=== PATIENT | female | born 1940 | race Caucasian/White ===

== ENCOUNTER 2019-01-26 10:12 | Inpatient (IN) ==
--- NOTE | 2019-01-11 10:16 | PAT Medication Instructions ---
Medication Instructions Date of Service January 11, 2019 Home Medications ascorbic acid (vitamin C) [Vitamin 1,000 mg PO QAM aspirin [Aspirin Low Dose] 81 mg PO HS calcium carbonate-vitamin D3 1 tab PO BID [id number]-ynhnoaq-[id number] 1 drp OPHTHALMIC (EYE) QID cholecalciferol (vitamin D3) 5,000 unit PO QAM coenzyme Q10 [CoQ-10] 100 mg PO QAM cranberry conc-ascorbic acid 1 cap PO QAM taebz-tq7-nmm-cnf-cl0-fzs-astx 1 cap PO QAM magnesium oxide 500 mg PO HS metoprolol succinate 25 mg PO QAM nitroglycerin [Nitrostat] 1 dose SUBLINGUAL UD PRN oregano oil 1 cap PO QAM vit A palm,D3 in cod liver oil 1 cap PO HS vitamins A,C,A-lchl-kxxiyb [ICaps 1 tab PO QAM wheat dextrin [Benefiber Sugar 2 tsp PO QAM white petrolatum-mineral oil 1 applic OPHTHALMIC (EYE) HS Continue as directed nitroglycerin [Nitrostat] 1 dose SUBLINGUAL UD PRN (if needed) STOP taking 2 weeks before surgery (or as soon as possible if surgery is within 2 weeks) coenzyme Q10 [CoQ-10] 100 mg PO QAM cranberry conc-ascorbic acid 1 cap PO QAM pksqt-ty1-oas-lge-jg8-uhv-astx 1 cap PO QAM oregano oil 1 cap PO QAM vit A palm,D3 in cod liver oil 1 cap PO HS vitamins A,C,D-clig-zspeaw [ICaps 1 tab PO QAM DO NOT take the morning of surgery ascorbic acid (vitamin C) [Vitamin 1,000 mg PO QAM calcium carbonate-vitamin D3 1 tab PO BID cholecalciferol (vitamin D3) 5,000 unit PO QAM wheat dextrin [Benefiber Sugar 2 tsp PO QAM Take morning of surgery With a small sip of water, OTHERWISE NOTHING TO EAT OR DRINK AFTER MIDNIGHT: featfevetwyamyx-qojgvmm-[id number] 1 drp OPHTHALMIC (EYE) QID metoprolol succinate 25 mg PO QAM Take evening before surgery aspirin [Aspirin Low Dose] 81 mg PO HS calcium carbonate-vitamin D3 1 tab PO BID ooeuwgidlmcrizy-kcucbha-mbtd73 1 drp OPHTHALMIC (EYE) QID magnesium oxide 500 mg PO HS white petrolatum-mineral oil 1 applic OPHTHALMIC (EYE) HS Other Notes If you have any questions please call us at [phone] or [phone] or [phone] or [phone]
--- NOTE | 2019-01-11 10:45 | Anesthesiology Consultation ---
Date of Service January 11, 2019 Assessment & Plan (1) Encounter for pre-operative examination: PCP Clearance 01/18/19: "Pt is medically cleared for procedure. Stress test negative. Cardiac clearance from cardiology." Cardiology clearance 12/27/18: " Wendi has been well. She remains very active and is not limited by any symptoms. 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 Stress testing shows no infarct with small area of apical ischemia. She has used a few SL nitro over the last few months. We discussed increasing metoprolol succinate versus starting isosorbide mononitrate. Her heart rate and BP are both stable. EKG is unchanged. Recommend continued aspirin through the perioperative period. Patient is stable and at optimal cardiac status presently to proceed with the planned surgery." Case d/w Dr. Adhikari due to cardiac clearance in spite of recent + stress test. 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 She has not reported exertional complaints, only chest pain at rest and with anxiety. Occluded diagonal branch is not amenable to PCI." Chart Review Chart Review: Acceptable Risk for Surgery and Patient seen in Pre Admission Testing Teaching & Discussion Instructed NPO after midnight before surgery, except medications with 15 cc of water. Medication instructions provided according to the PAT guidelines. History Surgery Operation Date: 01/26/19 10:30 Proposed Procedures p Left Total Knee Arthroplasty - Joaquin Oakes DO Height/Weight Height: 5 ft 1.75 in Weight: 91.9 kg Allergies Allergy/AdvReac Type Severity Reaction Status Date / Time Penicillins Allergy Severe SHORTNESS Verified 01/05/19 13:59 OF BREATH AND WHOLE BODY SWELLING pineapple Allergy Severe Anaphylaxis Verified 01/11/19 11:18 nickel Allergy Intermediate Blister Verified 01/05/19 14:32 Cephalosporins AdvReac Mild KEFLEX = Verified 01/05/19 13:59 N&V Iodinated Contrast- Oral and AdvReac Mild NAUSEA/VOMI Verified 01/05/19 13:59 IV Dye TTING Medications Home Medications Medication Instructions Recorded Confirmed Last Taken ascorbic acid (vitamin C) [Vitamin 1,000 mg PO QAM 01/05/19 01/05/19 Unknown C With Isela Hips] aspirin [Aspirin Low Dose] 81 mg PO HS 01/05/19 01/05/19 Unknown calcium carbonate-vitamin D3 1 tab PO BID 01/05/19 01/05/19 Unknown [Calcium 500 + D] qcklzdwamxwuhqs-ggngsnq-hryo56 1 drp OPHTHALMIC (EYE) QID 01/05/19 01/05/19 Unknown [Refresh Optive Advanced] cholecalciferol (vitamin D3) 5,000 unit PO QAM 01/05/19 01/05/19 Unknown [Vitamin D3] coenzyme Q10 [CoQ-10] 100 mg PO QAM 01/05/19 01/05/19 Unknown cranberry conc-ascorbic acid 1 cap PO QAM 01/05/19 01/05/19 Unknown wbtjs-ef5-hlp-swi-xo9-txp-astx 1 cap PO QAM 01/05/19 01/05/19 Unknown [Krill Oil ([place] 3 and 6)] magnesium oxide 500 mg PO HS 01/05/19 01/05/19 Unknown metoprolol succinate 25 mg PO QAM 01/05/19 01/05/19 Unknown nitroglycerin [Nitrostat] 1 dose SUBLINGUAL UD PRN 01/05/19 01/05/19 Unknown oregano oil 1 cap PO QAM 01/05/19 01/05/19 Unknown vit A palm,D3 in cod liver oil 1 cap PO HS 01/05/19 01/05/19 Unknown [Cod Liver Oil plus Dylan and D3] vitamins A,C,K-lzax-lfugmo [ICaps 1 tab PO QAM 01/05/19 01/05/19 Unknown AREDS] wheat dextrin [Benefiber Sugar 2 tsp PO QAM 01/05/19 01/05/19 Unknown Free (dextrin)] white petrolatum-mineral oil 1 applic OPHTHALMIC (EYE) HS 01/05/19 01/05/19 Unknown [Refresh P.M.] Past Medical History Medical History Benign tumor of thymus s/p thymectomy CAD (coronary artery disease) Per cardio notes, cath 2012 showed "LAD ok, D1 sup 99, LCx ok, RCA ok, EF NL ." + Stress test 11/2018, stable angina. Medically managed. Deep vein thrombosis MULTIPLE EPISODES; HAS BEEN TREATED WITH ANTICOAGULATION SEVERAL TIMES. NONE FOR AT LEAST PAST FIVE YEARS. Hiatal hernia H/O Hypertension Migraine H/O Sleep apnea CPAP Past Family History Family History Aunt Family history of diabetes mellitus Uncle Family history of diabetes mellitus Sister Family history of diabetes mellitus Mother Family hx of colon cancer Family history of diabetes mellitus FHx: ovarian cancer Brother Family hx of colon cancer Past Surgical History Surgical History Fusion of spine X4 SURGERIES TOTAL. FUSED FROM T11-S1 (DR KOEHLER, [facility], [place]) Fusion of spine C4-C7. DIFFICULTY TURNING TO RIGHT, LIMITED LOOKING UPWARD, FULL ROM DOWNWARD History of Summer fundoplication History of adenoidectomy History of appendectomy History of cardiac cath X3 (LAST ONE 2012), NO STENTS History of carpal tunnel release RIGHT & LEFT History of cataract surgery BILATERAL History of cholecystectomy History of colonoscopy History of cystoscopy History of dilatation and curettage History of discectomy CERVICAL AREA History of discectomy LUMBAR History of esophageal dilatation History of esophagogastroduodenoscopy (EGD) History of tonsillectomy S/P LARON-BSO Status post laser ablation of incompetent vein RLE Status post surgery OPEN CHEST SURGERY TO REMOVE BENIGN TUMOR OF THYMUS. ([facility]) Past Anesthesia History No Hx of Anesthesia Complications and No Family Hx of Anesthesia Complications History of PONV No Motion Sickness Screening History of Motion Sickness: No Social History Smoking Status: Former smoker tobacco type: cigarettes Do You Dip or Chew Tobacco: No Smoking End Date: QUIT AGE 37 Hx Alcohol Use: Yes Alcohol type: wine alcohol intake frequency: holidays/special occasions only Hx Substance Use: No substance use type: does not use Exercise / Class Metabolic Activity III < 4 Walking/Shop/Light housework (SOB with stairs and occasional CP with stairs/exertion. Activity has been limited by knee pain as well.) Review of Systems Pt denies any recent shortness of breath above baseline, palpitations, cough, fever or URI. Did use nitro for chest pain in November 2018. Physical Exam Vital Signs BP: 146/76 (pt follows with cardio for HTN) P: 69 bpm SPO2: 94% RA T: 98.0 F R: 16 ENMT Mouth: + dentures and + edentulous Thyromental Distance: > or= 3.5 Finger Breadths (4) Mallampati Class: III Neck + thick neck and + limited neck extension (very limited; full flexion) Respiratory normal respiratory effort Auscultation: lungs clear to auscultation bilaterally Cardiovascular Rate/Rhythm: regular rate and regular rhythm Heart Sounds: no murmur Vessels: no carotid bruit Extremities: no edema Testing Electrocardiogram Date: 08/23/18 Findings: + NSR @ (83) PRWP. Chest X-Ray Date: 01/11/19 IMPRESSION: Chronic and postoperative change. No acute process. Stress Test Date: 12/13/18 Type: nuclear Patient had nonspecific symptoms with pharmacologic stress. Hemodynamic response to stress was normal. There is no electrocardiographic criteria for myocardial ischemia. Myocardial perfusion imaging is abnormal. Myocardial ischemia involving a small area of the left ventricular apex. Myocardial infarction is not present. EF is 50%. Wall motion is normal. Conclusion: Small area of mild apical ischemia. No infarct. Laboratory Results 01/11/19 11:11 01/11/19 11:11 Blood Type A Positive 01/11/19 11:11 Antibody Screen NEGATIVE 01/11/19 11:11 PT 10.2 Seconds (9.0-12.0) 01/11/19 11:11 INR 1.0 (0.9-1.1) 01/11/19 11:11 APTT 24.5 Seconds (21.0-31.0) 01/11/19 11:11 Hemoglobin A1c 6.8 % (4.5-5.6) H 01/11/19 11:11 Urine Color Yellow 01/11/19 Unknown Urine Appearance Clear (Clear) 01/11/19 Unknown Urine pH 8.5 (4.5-7.5) H 01/11/19 Unknown Ur Specific [place] 1.018 (1.000-1.030) 01/11/19 Unknown Urine Protein Negative (Negative) 01/11/19 Unknown Urine Glucose (UA) Negative (Negative) 01/11/19 Unknown Urine Ketones Negative (Negative) 01/11/19 Unknown Urine Nitrite Negative (Negative) 01/11/19 Unknown Ur Leukocyte Esterase Negative (Negative) 01/11/19 Unknown *note was sent to PCP re: A1C, as pt did not report h/o DM.
--- NOTE | 2019-01-11 12:03 | XRay Report ---
XR chest Pre-admission PA/Lat CLINICAL HISTORY: pat preoperative evaluation COMPARISON STUDY: 04/20/2012 FINDINGS: Mild stable cardiomegaly. Prior median sternotomy. Postoperative changes to the low cervica l as well as upper lumbar and low thoracic spine. Lungs are considered clear. No acute infiltrate. IMPRESSION: Chronic and postoperative change. No acute process. The above report was generated using voice recognition software. It may contain grammatical, syntax or spelling errors. Electronically signed by: Robert Hernandez M.D. 01/11/2019 12:02 PM
[2019-01-11 12:07] LABS: Basophils # (auto) 0.03 K/uL (0-0.2); Basophils % (auto) 0.4 %; Eosinophils # (auto) 0.28 K/uL (0-0.5); Eosinophils % (auto) 3.4 %; Hematocrit (blood only) 39.9 % (37-47); Hemoglobin 13.7 g/dL (12.0-16.0); Immature Granulocytes # (auto) 0.01 K/uL (0.00-0.02); Immature Granulocytes % (auto) 0.1 %; Lymphocytes # (auto) 2.55 K/uL (1.2-3.4); Lymphocytes % (auto) 31.1 %; Mean Corpuscular Hgb Conc 34.3 g/dL (32-36); Mean Corpuscular Volume 88.9 fL (80-100); Monocytes # (auto) 0.56 K/uL (0.11-0.59); Monocytes % (auto) 6.8 %; Neutrophils # (auto) 4.77 K/uL (1.4-6.5); Neutrophils % (auto) 58.2 %; Platelet Count 227 K/uL (130-400); RDW Standard Deviation 42.3 fL (36.4-46.3); Red Blood Count 4.49 M/uL (4.2-5.4)
[2019-01-11 12:10] LABS: Appearance Urine Clear (Clear); Bilirubin Urine Negative (Negative); Blood Urine Negative (Negative); Color Urine Yellow; Glucose Urine UA Negative (Negative); Ketones Urine Negative (Negative); Leukocyte Esterase Urine Negative (Negative); Nitrite Urine Negative (Negative); Protein Urine Negative (Negative); Specific Gravity Urine 1.018 (1.000-1.030); Urobilinogen Urine Negative (Negative); pH Urine 8.5 (4.5-7.5)
[2019-01-11 12:17] LABS: Albumin Level 3.5 gm/dl (3.4-5.0); BUN Creatinine Ratio 22.6 (10-20); Creatinine Clr Calc Pharmacy 83.9 ml/min; Est GFR (African American) 102.3; Est GFR (Non-African American) 88.3; Potassium 3.9 mmol/L (3.5-5.1)
[2019-01-11 12:20] LABS: Partial Thromboplastin Ratio 0.9; Partial Thromboplastin Time 24.5 Seconds (21.0-31.0); Prothrombin Time 10.2 Seconds (9.0-12.0)
[2019-01-11 12:30] LABS: Estimated Average Glucose 148 mg/dl; Hemoglobin A1C 6.8 % (4.5-5.6)
--- NOTE | 2019-01-24 08:28 | History & Physical Report ---
Date of Service January 24, 2019 Date of Surgery: 01-26-19 Assessment & Plan (1) Osteoarthritis of left knee: Further care discussed with patient and at this point in time has failed conservative measures and would like to proceed with a Left total knee replacement. Plan on discharge will be home with home health physical therapy. DVT prophalaxis with TEDs, SCDs and will also place on Xarelto for a month postop, given her history of multiple DVTs. Patient will have follow up appointment in our office two weeks post op for staple/suture removal and re- evaluation. Patient otherwise has no other questions or concerns. patient has tried and failed conservative measures including visco, cortisone and prior NSAIDs. History of Present Illness Chief Complaint: left knee pain Primary Care Provider: Luis Alberto Adame Ms Schroeder is a 78 year old female who complains of left knee pain, presents for pre-op evaluation prior to a left total knee replacement on 01-26-19. She presents with pain, stiffness and crepitus on the left side. She states that the symptoms have been chronic non-traumatic. The symptoms occur intermittently. Currently the patient states that the symptoms are moderate-severe. The pain is described as aching and sharp. The symptoms occur intermittently. She rates her current pain as 5/10. The symptoms are aggravated by daily activities, walking, repetitive activities and weight bearing. Wendi states that the symptoms are relieved by no specific activity. In addition to left knee pain the patient is also experiencing difficulty bending, limping, joint pain, pain after activity, weakness and stiffness. Patient has had cortisone and visco injections. Allergies Allergy/AdvReac Type Severity Reaction Status Date / Time Penicillins Allergy Severe SHORTNESS Verified 01/05/19 13:59 OF BREATH AND WHOLE BODY SWELLING pineapple Allergy Severe Anaphylaxis Verified 01/11/19 11:18 nickel Allergy Intermediate Blister Verified 01/05/19 14:32 Cephalosporins AdvReac Mild KEFLEX = Verified 01/05/19 13:59 N&V Iodinated Contrast- Oral and AdvReac Mild NAUSEA/VOMI Verified 01/05/19 13:59 IV Dye TTING Home Medications Home Medications Medication Instructions Recorded Confirmed Type ascorbic acid (vitamin C) [Vitamin 1,000 mg PO QAM 01/05/19 01/05/19 History C With Isela Hips] aspirin [Aspirin Low Dose] 81 mg PO HS 01/05/19 01/05/19 History calcium carbonate-vitamin D3 1 tab PO BID 01/05/19 01/05/19 History [Calcium 500 + D] [id number]-gmoxnna-[id number] 1 drp OPHTHALMIC (EYE) QID 01/05/19 01/05/19 History [Refresh Optive Advanced] cholecalciferol (vitamin D3) 5,000 unit PO QAM 01/05/19 01/05/19 History [Vitamin D3] coenzyme Q10 [CoQ-10] 100 mg PO QAM 01/05/19 01/05/19 History cranberry conc-ascorbic acid 1 cap PO QAM 01/05/19 01/05/19 History vuxgw-mh7-eoy-dxn-gq1-ftt-astx 1 cap PO QAM 01/05/19 01/05/19 History [Krill Oil ([place] 3 and 6)] magnesium oxide 500 mg PO HS 01/05/19 01/05/19 History metoprolol succinate 25 mg PO QAM 01/05/19 01/05/19 History nitroglycerin [Nitrostat] 1 dose SUBLINGUAL UD PRN 01/05/19 01/05/19 History oregano oil 1 cap PO QAM 01/05/19 01/05/19 History vit A palm,D3 in cod liver oil 1 cap PO HS 01/05/19 01/05/19 History [Cod Liver Oil plus Dylan and D3] vitamins A,C,M-tmvw-yjtpzs [ICaps 1 tab PO QAM 01/05/19 01/05/19 History AREDS] wheat dextrin [Benefiber Sugar 2 tsp PO QAM 01/05/19 01/05/19 History Free (dextrin)] white petrolatum-mineral oil 1 applic OPHTHALMIC (EYE) HS 01/05/19 01/05/19 History [Refresh P.M.] Past Med/Surg History Medical History Benign tumor of thymus s/p thymectomy CAD (coronary artery disease) Per cardio notes, cath 2012 showed "LAD ok, D1 sup 99, LCx ok, RCA ok, EF NL." + Stress test 11/2018, stable angina. Medically managed. Deep vein thrombosis MULTIPLE EPISODES; HAS BEEN TREATED WITH ANTICOAGULATION SEVERAL TIMES. NONE FOR AT LEAST PAST FIVE YEARS. Hiatal hernia H/O Hypertension Migraine H/O Sleep apnea CPAP Surgical History Fusion of spine X4 SURGERIES TOTAL. FUSED FROM T11-S1 (DR KOEHLER, [facility]) Fusion of spine C4-C7. DIFFICULTY TURNING TO RIGHT, LIMITED LOOKING UPWARD, FULL ROM DOWNWARD History of Summer fundoplication History of adenoidectomy History of appendectomy History of cardiac cath X3 (LAST ONE 2012), NO STENTS History of carpal tunnel release RIGHT & LEFT History of cataract surgery BILATERAL History of cholecystectomy History of colonoscopy History of cystoscopy History of dilatation and curettage History of discectomy CERVICAL AREA History of discectomy LUMBAR History of esophageal dilatation History of esophagogastroduodenoscopy (EGD) History of tonsillectomy S/P LARON-BSO Status post laser ablation of incompetent vein RLE Status post surgery OPEN CHEST SURGERY TO REMOVE BENIGN TUMOR OF THYMUS. ([facility]) Family History Aunt Family history of diabetes mellitus Uncle Family history of diabetes mellitus Sister Family history of diabetes mellitus Mother Family hx of colon cancer Family history of diabetes mellitus FHx: ovarian cancer Brother Family hx of colon cancer Social History Preferred Language: Slovenian Communication Ability: Effective Human Resource Management Instructor Required: No Beliefs That Will Affect Care: None Current Living Situation: Spouse Other Information That Helps Us Care for You: No Feels Safe at Home: Yes Safety Concerns: Feels Safe At This Time Smoking Status: Former smoker Tobacco Type: cigarettes Do You Dip or Chew Tobacco: No Smoking End Date: QUIT AGE 37 Second Hand Exposure: No Tobacco Cessation Education Requested by Patient: No Hx Alcohol Use: Yes Alcohol type: wine Hx Substance Use: No Review of Systems Review of Systems: All systems reviewed & are unremarkable except as noted in HPI & below Constitutional: no fever, no chills and no sweats Respiratory: no cough and no dyspnea Cardiovascular: no chest pain, no dyspnea and no orthopnea Gastrointestinal: no abdominal pain, no nausea and no vomiting Musculoskeletal: as per Subjective / HPI Integumentary: no rash and no lesions Physical Exam Physical Exam: Ht: 5ft 1 in Wt: 91.9kg BP: 132/72 Pulse: 68 Constitutional: WD/WN, vitals as above no acute distress Respiratory: normal respiratory effort, lungs clear to auscultation no respiratory distress and does not use accessory muscles Cardiovascular: RRR, no murmur, no edema Gastrointestinal (Abdomen): normal bowel sounds, soft, nontender, no hepatosplenomegaly Musculoskeletal: Left Knee Physical Exam Patient ambulates with a limp, no assistance devices, overall varus alignment. There is no erythema or warmth, no atrophy or ecchymosis noted, mild suprapatellar effusion, maximum tenderness over the medial joint line. positive crepitation with motion, neha's Negative, posterior drawer negative. positive mcmurrays medially, negative anterior drawer, knee stable with valgus/varus stress. no extensor lag. pain with active range of motion, AROM 0/3/110, Passive ROM 0/3/115. No pain with active/passive ROM of ankle. Lower Extremity Strength normal. Lower Extremity Neuro-vascular is normal Skin: no rashes, warm and dry Results & Data Diagnostic Findings Left Knee X-ray from 02-15-18 showing advanced degenerative changes to the left knee, greatest medial compartments and patellofemoral joint, showing joint space narrowing, osteophyte formation and subchondral sclerosis. no acute bony pathology noted.
[~2019-01-26 10:12] MED LIST: ACETAMINOPHEN 500 MG TAB PO SCH; BUPIVACAINE 0.5 % 5 MG/1 ML PF 10ML VIAL ONE; CLINDAMYCIN 600 MG/54 ML BAG IV SCH; CeleBREX 200 MG CAP PO SCH; GABAPENTIN 300 MG PO SCH; LR 500ML BOLUS, THEN 15ML/HR IV SCH; METOCLOPRAMIDE HCL 10 MG TABLET PO SCH; ROPIVACAINE 0.5% 5 MG/ML 30 ML VIAL ONE; ROPIVACAINE 0.5% HCL/PF 150 MG, BUPIVACAINE 0.5% MPF 30 ML, EPINEPHrine 30MG/30ML (OR U... INFIL SCH; TRANEXAMIC ACID 1,000 MG **IV Intra-op IV SCH; TRANEXAMIC ACID 1,000 MG **IV Pre-op IV SCH; dexAMETHasone 4 MG TAB PO SCH
[2019-01-26] MEDS ORDERED: MIDAZOLAM HCL 1 MG/ML 2ML VIAL ONE (12:16)
[2019-01-26] MEDS ORDERED: fentaNYL citrate 100 MCG/2 ML VIAL ONE ×2 (12:16→14:06)
[2019-01-26] MEDS ORDERED: PROPOFOL IV EMULSION 10 MG/ML 20 ML VIAL IV ONE (12:16)
[2019-01-26] MEDS ORDERED: LIDOCAINE HCL 2% 2 ML VIAL/AMP(20MG/ML) INFIL ONE (12:16)
[2019-01-26] MEDS ORDERED: ORTHO JOINT ANESTHETIC ONE (13:15)
[2019-01-26] MEDS ORDERED: POVIDONE-IODINE OP SOLN 30 ML BTL ONE (13:15)
[2019-01-26] MEDS ORDERED: BACITRACIN INJ 50,000 UNIT VIAL ONE (13:15)
[2019-01-26] MEDS ORDERED: PHENYLEPHRINE 100MCG/ML 5ML SYR IV PRN (13:25)
[2019-01-26] MEDS ORDERED: HYDROmorphone INJ 1 MG/ML SYRINGE IV PRN ×2 (13:25→16:38)
[2019-01-26] MEDS ORDERED: ONDANSETRON INJ 2 MG/ML 2 ML VIAL IV PRN ×2 (13:25→16:38)
[2019-01-26] MEDS ORDERED: ATROPINE SULFATE 0.1 MG/ML 10ML SYR IV PRN (13:25)
[2019-01-26] MEDS ORDERED: KETOROLAC TROMETHAMINE 15 MG/ML VIAL IV PRN (13:25)
[2019-01-26] MEDS ORDERED: ePHEDrine sulfate 50 MG/ML AMP IV PRN (13:25)
--- NOTE | 2019-01-26 13:26 | History & Physical Bridge Note ---
Date of Service January 26, 2019 History & Physical Bridge Note I have examined the patient, reviewed the History & Physical and in the interval since the performance of the History & Physical I have noted the following changes of clinical significance: no changes noted
[2019-01-26] MEDS ORDERED: ROCURONIUM BROMIDE 10 MG/ML 5 ML VIAL ONE (14:13)
[2019-01-26] MEDS ORDERED: HYDROmorphone INJ 2 MG/ML SYR/VIAL ONE (14:13)
[2019-01-26] MEDS ORDERED: GLYCOPYRROLATE 0.2 MG/ML VIAL ONE (14:23)
[2019-01-26] MEDS ORDERED: NEOSTIGMINE METHYLSULFATE 5 MG/5 ML SYR ONE (14:23)
--- NOTE | 2019-01-26 14:55 | Operative Report ---
Post Operative Report Pre & Post Diagnosis Operation Date: 01/26/19 13:10 Pre-Op Diagnosis: Unilateral Primary Osteoarthritis, Left Knee Post-Op Diagnosis: Unilateral Primary Osteoarthritis, Left Knee Procedure Operation Date: 01/26/19 13:10 Actual Procedures p Left Total Knee Arthroplasty(Left) utilizing Kimble & Nephew journey 2 non- block total knee arthroplasty size 4 femur 4 tibia size 10 polyethylene size 29 oval patella- Joaquin Oakes DO Surgeon Joaquin Oakes DO Jewelry Appraiser Robert MURRY Estimated Blood Loss 5 Findings Consistent with Post-Op Diagnosis Patient presents with severe end-stage tricompartmental DJD about the left knee with a 15 degree flexion contracture varus alignment oetr-ho-hkzt changes subchondral sclerosis cystic changes marginal osteophytes and a moderate to large effusion no response of the conservative therapy Specimens Bone and cartilage Drains Medium bore Hemovac Complications none Disposition Accompanied Patient To Recovery: No Disposition: Recovery Room Indications Patient presents with severe end-stage tricompartmental degenerative joint disease with a flexion contracture 15 degrees varus alignment no response to conservative management the above intraoperative findings were noted patient is failed attempts of Visco supplementation corticosteroid injection bracing relative rest activity modification weight loss presents for left total knee arthroplasty Description of Procedure After proper prepping and draping of the left lower extremity anterior midline incision was made over the region of the extensor extensor mechanism after meticulous hemostasis was obtained and maintained in subcutaneous tissues a medial parapatellar incision was made The patella was subluxed lateralward the medial lateral gutter were cleaned from any hypertrophic synovitis and scar tissue of the distal femoral block was placed and the distal femoral osteotomy cut was made subsequently the chamfers anterior and posterior osteotomy cuts were made utilizing the 4-in-1 block the tibia was subsequently subluxed anteriorward medial and ateral meniscal remnants were excised in their entirety remnants of the anterior and posterior cruciate ligaments were excised in their entirety excellent exposure of the proximal tibia was obtained the tibial osteotomy guide was placed on the proximal tibial osteotomy cut was made once again the knee was irrigated with copious amounts of sterile saline solution the patella was subsequently everted lateralward thickened scar tissue around the patella was removed the patella was subsequently cut utilizing a freehand technique and was drilled prepared for final preparation and placement of patella socially flexion-extension gaps were checked and the equal and symmetric trials were placed to the appropriate femoral and tibial trials with poly-spacer being placed for equal flexion and extension gaps and full range of motion including extension to 0 and flexion to 140 the trial components after having been taken to recovery range of motion was subsequently removed meticulous hemostasis was obtained and maintained subsequently a knee block injection of joint cocktail including ropivacaine 0.5% 150 mg. Bupivacaine 0.5% epinephrine 1-200,030 mL's toradol 30 mg dexamethasone 4 mg ketamine 10 mg clonidine 100 micrograms normal saline solution 30 mg was infiltrated into the soft tissues of the posterior knee medial lateral gutters and periosteal synovium special attention was paid to protect neurovascular structures at all times subsequently trial components having been removed the knee was irrigated with sterile saline solution. debris was removed the proximal tibia was subsequently prepared and was made ready for the placement of the tibial component tibial component was also cemented and tamped into position the femoral component was subsequently placed and cemented in the position the patellar component was subsequently cemented in position because hemostasis once again obtained and maintained wound having been thoroughly irrigated with debridement and debridement lavage was performed as well as a medial parapatellar incision closed with #1 Vicryl in interrupted fashion subcutaneous was closed with #2 Vicryl skin was closed with skin clips. PA-C was necessary for prepping and drapping as well as wound closure of deep fascia Sub cutaneous tissue and skin and was necessary for the case. A sterile compressive dressing was placed patient was taken to recovery in stable condition of report dictated by Champ I attest to the content of the Intraoperative Record and any orders documented therein. Any exceptions are noted below. I attest to the content of the Intraoperative Record and any orders documented therein. Any exceptions are noted below.
--- NOTE | 2019-01-26 15:55 | XRay Report ---
XR knee LT 2V routine HISTORY: 78 years-old Female Surgical Post Op left knee total joint arthroplasty. History of degener ative joint disease COMPARISON: None available TECHNIQUE: 2 views of the left knee FINDINGS: Left knee total joint arthroplasty and patellar resurfacing. Alignment is satisfactory. No acute frac ture or retained foreign body. Expected postsurgical soft tissue swelling and deep tissue air with goodwin rgical drainage catheter. IMPRESSION: Left knee total joint arthroplasty and patella resurfacing with satisfactory alignment. The above report was generated using voice recognition software. It may contain grammatical, syntax o r spelling errors. Electronically signed by: Kristofer Marvin M.D. 01/26/2019 3:53 PM
--- NOTE | 2019-01-26 16:19 | Anesthesiology Progress Note ---
Date of Service January 26, 2019 Anesthesia Post Procedure Vital Signs Vital Signs: Temp Pulse Pulse Resp BP Pulse Ox 01/26/19 16:05 58 L 13 116/48 L 95 01/26/19 15:55 62 14 117/49 L 96 01/26/19 15:45 73 14 119/53 L 97 01/26/19 15:37 36.4 C L 78 14 124/49 L 95 01/26/19 11:24 36.8 C 72 20 168/88 H 96 Pain Intensity Left Knee: Pain Intensity: 3 Transfer of Care Handoff Completed per policy Notes Mental Status: alert / awake / arousable and participated in evaluation Patient Amnestic to Procedure: Yes Nausea / Vomiting: adequately controlled Pain: adequately controlled Airway Patency, RR, SpO2: stable & adequate BP & HR: stable & adequate Hydration State: stable & adequate Anesthetic Complications: no major complications apparent
[2019-01-26] MEDS ORDERED: MAGNESIUM HYDROXIDE SUSP 30 ML UDC PO PRN (16:38)
[2019-01-26] MEDS ORDERED: NALOXONE HCL 0.4 MG/1 ML VIAL/CARP IV PRN (16:38)
[2019-01-26] MEDS ORDERED: METOCLOPRAMIDE HCL INJ 5 MG/ML 2 ML VIAL IV PRN (16:38)
[2019-01-26] MEDS ORDERED: BISACODYL 10 MG SUPP PR PRN (16:38)
[2019-01-26] MEDS ORDERED: NITROGLYCERIN SL 0.4 MG/TAB TAB SL PRN (16:38)
[2019-01-26] MEDS: CLINDAMYCIN 600 MG in DEXTROSE 5% 50 ML IV SCH (17:58)
[2019-01-26] MEDS: SODIUM CHLORIDE 0.9% 1000ML 1,000 ML IV SCH (17:58)
[2019-01-26] MEDS: KETOROLAC TROMETHAMINE 15 MG/ML VIAL IV SCH (17:58)
[2019-01-26] MEDS: SENNA 8.6 MG TAB PO SCH (20:55)
[2019-01-26] MEDS: MAGNESIUM OXIDE 400 MG TAB PO SCH (20:55)
[2019-01-26] MEDS: DOCUSATE SODIUM 100 MG CAP PO SCH (20:55)
[2019-01-26] MEDS: ASPIRIN 81 MG ECTAB PO SCH (20:55)
[2019-01-26] MEDS: CALCIUM 600MG + VIT D 400 IU TAB PO SCH (20:55)
[2019-01-26] MEDS: ACETAMINOPHEN 500 MG TAB PO SCH (20:56)
[2019-01-26] MEDS: ARTIFICIAL TEARS OP SCH (20:56)
[2019-01-27] MEDS: CLINDAMYCIN 600 MG in DEXTROSE 5% 50 ML IV SCH (00:27)
[2019-01-27] MEDS: KETOROLAC TROMETHAMINE 15 MG/ML VIAL IV SCH ×4 (00:28→11:36)
[2019-01-27] MEDS: OXYCODONE HCL IR 5 MG TAB (IMMEDIATE RELEASE) PO PRN ×2 (01:47→15:24)
[2019-01-27] MEDS: ACETAMINOPHEN 500 MG TAB PO SCH ×3 (05:22→21:07)
[2019-01-27] MEDS: SODIUM CHLORIDE 0.9% 1000ML 1,000 ML IV SCH (05:49)
[2019-01-27 07:15] LABS: Hematocrit (blood only) 31.7 % (37-47); Mean Corpuscular Hgb Conc 34.7 g/dL (32-36); Mean Corpuscular Volume 86.4 fL (80-100); Mean Platelet Volume 9.1 fL (7.4-10.4); Platelet Count 195 K/uL (130-400); RDW Coefficient of Variation 12.9 % (11.5-14.5); Red Blood Count 3.67 M/uL (4.2-5.4); White Blood Count 14.27 K/uL (4.8-10.8)
--- NOTE | 2019-01-27 07:19 | Orthopedic Progress Note ---
Date of Service January 27, 2019 Assessment & Plan (1) Status post total left knee replacement: POD #1 s/p Left TKA pt/ot dvt proph with TERESITA/SCD/ASA plan for transfer to Rehab upon discharge, will check insurance auth; Subjective POD #1 s/p Left TKA denies CP/SOB denies Fever or chills pain 11/07 Review of Systems Constitutional: no fever, no chills and no sweats Physical Exam Physical Exam: Vital Signs Temp Pulse Pulse Pulse Resp BP BP 01/27/19 02:51 36.4 C L 59 L 14 139/70 01/26/19 23:18 36.4 C L 64 16 124/64 01/26/19 19:36 36.3 C L 58 L 18 127/67 01/26/19 18:32 36.2 C L 59 L 17 122/64 01/26/19 17:35 36.0 C L 57 L 18 130/66 01/26/19 17:00 36.0 C L 62 19 118/65 01/26/19 16:30 36.5 C 57 L 18 121/67 01/26/19 16:15 36.4 C L 55 L 15 120/51 L 01/26/19 16:05 58 L 13 116/48 L 01/26/19 15:55 62 14 117/49 L 01/26/19 15:45 73 14 119/53 L 01/26/19 15:37 36.4 C L 78 14 124/49 L 01/26/19 11:24 36.8 C 72 20 168/88 H Pulse Ox 01/27/19 02:51 94 01/26/19 23:18 97 01/26/19 19:36 98 01/26/19 18:32 93 01/26/19 17:35 100 01/26/19 17:00 99 01/26/19 16:30 94 01/26/19 16:15 96 01/26/19 16:05 95 01/26/19 15:55 96 01/26/19 15:45 97 01/26/19 15:37 95 01/26/19 11:24 96 Intake and Output 01/26/19 01/27/19 01/27/19 22:59 06:59 14:59 Intake Total 1159 / 3368.000 1399.000 / 3368.00 0 Output Total 730 / 1180 450 / 1180 Balance 429 / 2188.000 949.000 / 2188.000 Intake: IV 59 / 1778.608 4733.000 / 1918.00 0 Cleocin 600 mg In D5w 50 ml @ 54 / 108 54 / 108 100 mls/hr IV Q8H RICHARD Rx#: [id number] Nss 1000ML 1,0 00 ml @ 100 mls/ 5 / 1000.000 995.000 / 1000.000 hr IV .Q10H SC H Rx#:[id number] IV Perioperative 800 / 800 Oral 300 / 650 350 / 650 Output: Urine 600 / 1050 450 / 1050 Estimated Blood Loss 5 / 5 Drain Output 125 / 125 Left Knee Hemo vac 125 / 125 Other: Weight 92.8 kg Constitutional: WD/WN, vitals as above no acute distress Musculoskeletal: Left Knee: NVDI, calf SNT, negative luz maria sign. DP palpable, able to wiggle toes/ankle movement without difficulty. dressing clean dry and intact. Vital Signs Temp 36.4 C L 01/27/19 02:51 Pulse 59 L 01/27/19 02:51 Resp 14 01/27/19 02:51 BP 139/70 01/27/19 02:51 Pulse Ox 94 01/27/19 02:51 Intake & Output 01/26/19 01/27/19 01/27/19 18:59 06:59 18:59 Intake Total 1669 / 3368.000 1699.000 / 3368.00 0 Output Total 55 / 1180 1125 / 1180 Balance 1614 / 2188.000 574.000 / 2188.000 Weight 92.8 kg Intake: IV 869 / 6127.350 1757.000 / 1918.00 0 Cleocin 600 mg In D5w 50 ml @ 54 / 108 54 / 108 100 mls/hr IV Q8H RICHARD Rx#: [id number] Lr 1,000 ml @ 15 mls/hr IV . 700 / 700 Q24H RICHARD Rx#:[id number] Nss 1000ML 1,0 00 ml @ 100 mls/ 5 / 1000.000 995.000 / 1000.000 hr IV .Q10H SC H Rx#:[id number] Cyklokapron 1, 000 mg In Sodium 110 / 110 Chloride 100 m l @ 660 mls/hr IV 0630 RICHARD Rx#:[id number] IV Perioperative 800 / 800 Oral 650 / 650 Output: Urine 1050 / 1050 Estimated Blood Loss 5 / 5 Drain Output 50 / 125 75 / 125 Left Knee Hemo vac 50 / 125 75 / 125 Results & Data Vital Signs (Past 12 Hours) Vital Signs Temp Pulse Pulse Resp BP BP Pulse Ox 01/27/19 02:51 36.4 C L 59 L 14 139/70 94 01/26/19 23:18 36.4 C L 64 16 124/64 97 01/26/19 19:36 36.3 C L 58 L 18 127/67 98 Laboratory Results Laboratory Results WBC 14.27 K/uL (4.8-10.8) H 01/27/19 07:01 RBC 3.67 M/uL (4.2-5.4) L 01/27/19 07:01 Hgb 11.0 g/dL (12.0-16.0) L 01/27/19 07:01 Hct 31.7 % (37-47) L 01/27/19 07:01 MCV 86.4 fL (80-100) 01/27/19 07:01 MCH 30.0 pg (25-34) 01/27/19 07:01 MCHC 34.7 g/dL (32-36) 01/27/19 07:01 RDW Std Deviation 41.0 fL (36.4-46.3) 01/27/19 07:01 RDW Coeff of Delia 12.9 % (11.5-14.5) 01/27/19 07:01 Plt Count 195 K/uL (130-400) 01/27/19 07:01 MPV 9.1 fL (7.4-10.4) 01/27/19 07:01 Immature Gran % (Auto) 0.1 % 01/11/19 11:11 Neut % (Auto) 58.2 % 01/11/19 11:11 Lymph % (Auto) 31.1 % 01/11/19 11:11 [place] % (Auto) 6.8 % 01/11/19 11:11 Eos % (Auto) 3.4 % 01/11/19 11:11 Baso % (Auto) 0.4 % 01/11/19 11:11 Immature Gran # (Auto) 0.01 K/uL (0.00-0.02) 01/11/19 11:11 Neut # (Auto) 4.77 K/uL (1.4-6.5) 01/11/19 11:11 Lymph # (Auto) 2.55 K/uL (1.2-3.4) 01/11/19 11:11 [place] # (Auto) 0.56 K/uL (0.11-0.59) 01/11/19 11:11 Eos # (Auto) 0.28 K/uL (0-0.5) 01/11/19 11:11 Baso # (Auto) 0.03 K/uL (0-0.2) 01/11/19 11:11 PT 10.2 Seconds (9.0-12.0) 01/11/19 11:11 INR 1.0 (0.9-1.1) 01/11/19 11:11 APTT 24.5 Seconds (21.0-31.0) 01/11/19 11:11 PTT Ratio 0.9 01/11/19 11:11 Sodium 141 mmol/L (136-145) 01/11/19 11:11 Potassium 3.9 mmol/L (3.5-5.1) 01/11/19 11:11 Chloride 107 mmol/L (98-107) 01/11/19 11:11 Carbon Dioxide 28 mmol/L (21-32) 01/11/19 11:11 Anion Gap 6.0 (3-11) 01/11/19 11:11 BUN 13 mg/dl (7-18) 01/11/19 11:11 Creatinine 0.58 mg/dl (0.6-1.2) L 01/11/19 11:11 Est Cr Clr Drug Dosing 83.9 ml/min 01/11/19 11:11 Est GFR ( Amer) 102.3 01/11/19 11:11 Est GFR (Non-Af Amer) 88.3 01/11/19 11:11 BUN/Creatinine Ratio 22.6 (10-20) H 01/11/19 11:11 Glucose 101 mg/dl (70-99) H 01/11/19 11:11 POC Glucose 133 (70-99) H 01/26/19 11:08 Estimat Average Glucose 148 mg/dl 01/11/19 11:11 Hemoglobin A1c 6.8 % (4.5-5.6) H 01/11/19 11:11 Calcium 10.0 mg/dl (8.5-10.1) 01/11/19 11:11 Albumin 3.5 gm/dl (3.4-5.0) 01/11/19 11:11 Urine Color Yellow 01/11/19 Unknown Urine Appearance Clear (Clear) 01/11/19 Unknown Urine pH 8.5 (4.5-7.5) H 01/11/19 Unknown Ur Specific [place] 1.018 (1.000-1.030) 01/11/19 Unknown Urine Protein Negative (Negative) 01/11/19 Unknown Urine Glucose (UA) Negative (Negative) 01/11/19 Unknown Urine Ketones Negative (Negative) 01/11/19 Unknown Urine Blood Negative (Negative) 01/11/19 Unknown Urine Nitrite Negative (Negative) 01/11/19 Unknown Urine Bilirubin Negative (Negative) 01/11/19 Unknown Urine Urobilinogen Negative (Negative) 01/11/19 Unknown Ur Leukocyte Esterase Negative (Negative) 01/11/19 Unknown Blood Type A Positive 01/11/19 11:11 Antibody Screen NEGATIVE 01/11/19 11:11 Diagnostic Findings XR knee LT 2V routine HISTORY: 78 years-old Female Surgical Post Op left knee total joint arthroplasty. History of degenerative joint disease COMPARISON: None available TECHNIQUE: 2 views of the left knee FINDINGS: Left knee total joint arthroplasty and patellar resurfacing. Alignment is satisfactory. No acute fracture or retained foreign body. Expected postsurgical soft tissue swelling and deep tissue air with surgical drainage catheter. IMPRESSION: Left knee total joint arthroplasty and patella resurfacing with satisfactory alignment.
[2019-01-27] MEDS: ARTIFICIAL TEARS OP SCH ×4 (07:27→21:06)
[2019-01-27] MEDS: CHOLECALCIFEROL 1,000 UNITS TAB PO SCH (07:30)
[2019-01-27] MEDS: CALCIUM 600MG + VIT D 400 IU TAB PO SCH ×2 (07:30→21:06)
[2019-01-27] MEDS: DOCUSATE SODIUM 100 MG CAP PO SCH ×2 (07:30→21:06)
[2019-01-27] MEDS: METOPROLOL SUCC 25MG EXT REL TAB PO SCH (07:31)
[2019-01-27] MEDS: MULTIVITAMIN TAB PO SCH (07:31)
[2019-01-27] MEDS: ASCORBIC ACID 500 MG TAB PO SCH (07:31)
[2019-01-27] MEDS: ASPIRIN 81 MG ECTAB PO SCH ×2 (07:32→21:06)
[2019-01-27 07:55] LABS: BUN Creatinine Ratio 28.1 (10-20); Calcium 8.8 mg/dl (8.5-10.1); Creatinine Clr Calc Pharmacy 78.4 ml/min; Est GFR (African American) 99.1; Est GFR (Non-African American) 85.5; Potassium 4.3 mmol/L (3.5-5.1)
[2019-01-27] MEDS: CeleBREX 200 MG CAP PO SCH (21:06)
[2019-01-27] MEDS: SENNA 8.6 MG TAB PO SCH (21:07)
[2019-01-27] MEDS: MAGNESIUM OXIDE 400 MG TAB PO SCH (21:07)
[2019-01-28] MEDS: ACETAMINOPHEN 500 MG TAB PO SCH (06:02)
--- NOTE | 2019-01-28 07:03 | Orthopedic Progress Note ---
Date of Service January 28, 2019 Assessment & Plan (1) Status post total left knee replacement: POD #2 s/p Left TKA pt/ot dvt proph with TERESITA/SCD/ASA plan for transfer to Rehab upon discharge, will check insurance auth, if bed available stable for transfer after PT today. d/c oxycodone and transition to [place] 1 tab every 4 hours prn. Subjective POD #2 s/p Left TKA denies CP/SOB denies Fever or chills had issues with the oxycodone yesterday afternoon, we d/c'd it this am. Physical Exam Physical Exam: Vital Signs Temp 36.4 C L 01/27/19 23:16 Pulse 66 01/27/19 23:16 Resp 16 01/27/19 23:16 BP 165/66 H 01/27/19 23:16 Pulse Ox 97 01/27/19 23:16 Intake & Output 01/27/19 01/28/19 01/28/19 18:59 06:59 18:59 Intake Total 475 / 1325 850 / 1325 Output Total 250 / 350 100 / 350 Balance 225 / 975 750 / 975 Weight 92.8 kg Intake: Oral 475 / 1325 850 / 1325 Output: Drain Output 250 / 350 100 / 350 Left Knee Hemo vac 250 / 350 100 / 350 Other: Other Intake Nuzhat rce vit # Unmeasured Voi ds 1 Constitutional: WD/WN, vitals as above no acute distress Musculoskeletal: left KNee: NVDI, calf SNT, negative luz maria sign. DP palpable, able to wiggle toes/ankle movement without difficulty. SEMAJ dressing clean dry and intact. expected post-operative bruising noted. hemovac has been removed. Results & Data Vital Signs (Past 12 Hours) Vital Signs Temp Pulse Resp BP Pulse Ox 01/27/19 23:16 36.4 C L 66 16 165/66 H 97 Laboratory Results Laboratory Results WBC 14.27 K/uL (4.8-10.8) H 01/27/19 07:01 RBC 3.67 M/uL (4.2-5.4) L 01/27/19 07:01 Hgb 11.0 g/dL (12.0-16.0) L 01/27/19 07:01 Hct 31.7 % (37-47) L 01/27/19 07:01 MCV 86.4 fL (80-100) 01/27/19 07:01 MCH 30.0 pg (25-34) 01/27/19 07:01 MCHC 34.7 g/dL (32-36) 01/27/19 07:01 RDW Std Deviation 41.0 fL (36.4-46.3) 01/27/19 07:01 RDW Coeff of Delia 12.9 % (11.5-14.5) 01/27/19 07:01 Plt Count 195 K/uL (130-400) 01/27/19 07:01 MPV 9.1 fL (7.4-10.4) 01/27/19 07:01 Immature Gran % (Auto) 0.1 % 01/11/19 11:11 Neut % (Auto) 58.2 % 01/11/19 11:11 Lymph % (Auto) 31.1 % 01/11/19 11:11 [place] % (Auto) 6.8 % 01/11/19 11:11 Eos % (Auto) 3.4 % 01/11/19 11:11 Baso % (Auto) 0.4 % 01/11/19 11:11 Immature Gran # (Auto) 0.01 K/uL (0.00-0.02) 01/11/19 11:11 Neut # (Auto) 4.77 K/uL (1.4-6.5) 01/11/19 11:11 Lymph # (Auto) 2.55 K/uL (1.2-3.4) 01/11/19 11:11 [place] # (Auto) 0.56 K/uL (0.11-0.59) 01/11/19 11:11 Eos # (Auto) 0.28 K/uL (0-0.5) 01/11/19 11:11 Baso # (Auto) 0.03 K/uL (0-0.2) 01/11/19 11:11 PT 10.2 Seconds (9.0-12.0) 01/11/19 11:11 INR 1.0 (0.9-1.1) 01/11/19 11:11 APTT 24.5 Seconds (21.0-31.0) 01/11/19 11:11 PTT Ratio 0.9 01/11/19 11:11 Sodium 139 mmol/L (136-145) 01/27/19 07:01 Potassium 4.3 mmol/L (3.5-5.1) 01/27/19 07:01 Chloride 108 mmol/L (98-107) H 01/27/19 07:01 Carbon Dioxide 24 mmol/L (21-32) 01/27/19 07:01 Anion Gap 7.0 (3-11) 01/27/19 07:01 BUN 18 mg/dl (7-18) 01/27/19 07:01 Creatinine 0.64 mg/dl (0.6-1.2) 01/27/19 07:01 Est Cr Clr Drug Dosing 78.4 ml/min 01/27/19 07:01 Est GFR ( Amer) 99.1 01/27/19 07:01 Est GFR (Non-Af Amer) 85.5 01/27/19 07:01 BUN/Creatinine Ratio 28.1 (10-20) H 01/27/19 07:01 Glucose 153 mg/dl (70-99) H 01/27/19 07:01 POC Glucose 133 (70-99) H 01/26/19 11:08 Estimat Average Glucose 148 mg/dl 01/11/19 11:11 Hemoglobin A1c 6.8 % (4.5-5.6) H 01/11/19 11:11 Calcium 8.8 mg/dl (8.5-10.1) 01/27/19 07:01 Albumin 3.5 gm/dl (3.4-5.0) 01/11/19 11:11 Urine Color Yellow 01/11/19 Unknown Urine Appearance Clear (Clear) 01/11/19 Unknown Urine pH 8.5 (4.5-7.5) H 01/11/19 Unknown Ur Specific [place] 1.018 (1.000-1.030) 01/11/19 Unknown Urine Protein Negative (Negative) 01/11/19 Unknown Urine Glucose (UA) Negative (Negative) 01/11/19 Unknown Urine Ketones Negative (Negative) 01/11/19 Unknown Urine Blood Negative (Negative) 01/11/19 Unknown Urine Nitrite Negative (Negative) 01/11/19 Unknown Urine Bilirubin Negative (Negative) 01/11/19 Unknown Urine Urobilinogen Negative (Negative) 01/11/19 Unknown Ur Leukocyte Esterase Negative (Negative) 01/11/19 Unknown Blood Type A Positive 01/11/19 11:11 Antibody Screen NEGATIVE 01/11/19 11:11
[2019-01-28] MEDS: HYDROCODONE/ACETAMOPHEN 5/325MG TAB PO PRN ×2 (07:25→12:04)
[2019-01-28] MEDS: ARTIFICIAL TEARS OP SCH (08:09)
[2019-01-28] MEDS: CeleBREX 200 MG CAP PO SCH (08:10)
[2019-01-28] MEDS: CALCIUM 600MG + VIT D 400 IU TAB PO SCH (08:10)
[2019-01-28] MEDS: MULTIVITAMIN TAB PO SCH (08:10)
[2019-01-28] MEDS: DOCUSATE SODIUM 100 MG CAP PO SCH (08:11)
[2019-01-28] MEDS: CHOLECALCIFEROL 1,000 UNITS TAB PO SCH (08:11)
[2019-01-28] MEDS: ASPIRIN 81 MG ECTAB PO SCH (08:12)
[2019-01-28] MEDS: METOPROLOL SUCC 25MG EXT REL TAB PO SCH (08:12)
[2019-01-28] MEDS: ASCORBIC ACID 500 MG TAB PO SCH (08:12)
--- NOTE | 2019-01-29 19:33 | Discharge Summary ---
Date of Service Date of Discharge: January 28, 2019 Date of Admission: 01/26/19 Admission HPI Per Admitting Provider Ms Schroeder is a 78 year old female who complains of left knee pain, presents for pre-op evaluation prior to a left total knee replacement on 01-26-19. She presents with pain, stiffness and crepitus on the left side. She states that the symptoms have been chronic non-traumatic. The symptoms occur intermittently. Currently the patient states that the symptoms are moderate-severe. The pain is described as aching and sharp. The symptoms occur intermittently. She rates her current pain as 5/10. The symptoms are aggravated by daily activities, walking, repetitive activities and weight bearing. Wendi states that the symptoms are relieved by no specific activity. In addition to left knee pain the patient is also experiencing difficulty bending, limping, joint pain, pain after activity, weakness and stiffness. Patient has had cortisone and visco injections. Principal Diagnosis left knee osteoarthritis Discharge Exam Constitutional WD/WN, vitals as above no acute distress Musculoskeletal left knee: NVDI, calf SNT, negative luz maria sign. DP palpable, able to wiggle toes/ankle movement without difficulty. SEMAJ dressing clean dry and intact. expected post-operative bruising noted. Discharge Data Allergies Allergy/AdvReac Type Severity Reaction Status Date / Time Penicillins Allergy Severe SHORTNESS Verified 01/26/19 11:11 OF BREATH AND WHOLE BODY SWELLING pineapple Allergy Severe Anaphylaxis Verified 01/26/19 11:11 nickel Allergy Intermediate Blister Verified 01/26/19 11:11 Cephalosporins AdvReac Mild KEFLEX = Verified 01/26/19 11:11 N&V Iodinated Contrast- Oral and AdvReac Mild NAUSEA/VOMI Verified 01/26/19 11:11 IV Dye TTING Consultations 01/26/19 16:38 Consult Case Management - Discharge Planning Routine Procedures Performed Operation Date: 01/26/19 13:10 Actual Procedures p Left Total Knee Arthroplasty(Left) - Joaquin Oakes DO Ordered Studies 01/26/19 13:25 US - OR guided needle placemen Routine Hospital Course (1) Status post total left knee replacement: POD #2 s/p Left TKA pt/ot dvt proph with TERESITA/SCD/ASA plan for transfer to Rehab upon discharge, will check insurance auth, if bed available stable for transfer after PT today. d/c oxycodone and transition to [place] 1 tab every 4 hours prn. Patient was a same day admission after undergoing a successful left TKA. She tolerated the procedure well. Post-operatively, her activity was progressed and well tolerated. Please refer to daily progress notes and PT notes for complete details. After exam on 01/28/19, patient felt to be stable for discharge to rehab. Patient will f/u in the office in 2 weeks for further evaluation including x- rays and incision check, sooner if having any issues or concerns. Below are pertinent labs/studies during their hospital stay: Laboratory Results WBC 14.27 K/uL (4.8-10.8) H 01/27/19 07:01 RBC 3.67 M/uL (4.2-5.4) L 01/27/19 07:01 Hgb 11.0 g/dL (12.0-16.0) L 01/27/19 07:01 Hct 31.7 % (37-47) L 01/27/19 07:01 MCV 86.4 fL (80-100) 01/27/19 07:01 MCH 30.0 pg (25-34) 01/27/19 07:01 MCHC 34.7 g/dL (32-36) 01/27/19 07:01 RDW Std Deviation 41.0 fL (36.4-46.3) 01/27/19 07:01 RDW Coeff of Delia 12.9 % (11.5-14.5) 01/27/19 07:01 Plt Count 195 K/uL (130-400) 01/27/19 07:01 MPV 9.1 fL (7.4-10.4) 01/27/19 07:01 Immature Gran % (Auto) 0.1 % 01/11/19 11:11 Neut % (Auto) 58.2 % 01/11/19 11:11 Lymph % (Auto) 31.1 % 01/11/19 11:11 [place] % (Auto) 6.8 % 01/11/19 11:11 Eos % (Auto) 3.4 % 01/11/19 11:11 Baso % (Auto) 0.4 % 01/11/19 11:11 Immature Gran # (Auto) 0.01 K/uL (0.00-0.02) 01/11/19 11:11 Neut # (Auto) 4.77 K/uL (1.4-6.5) 01/11/19 11:11 Lymph # (Auto) 2.55 K/uL (1.2-3.4) 01/11/19 11:11 [place] # (Auto) 0.56 K/uL (0.11-0.59) 01/11/19 11:11 Eos # (Auto) 0.28 K/uL (0-0.5) 01/11/19 11:11 Baso # (Auto) 0.03 K/uL (0-0.2) 01/11/19 11:11 PT 10.2 Seconds (9.0-12.0) 01/11/19 11:11 INR 1.0 (0.9-1.1) 01/11/19 11:11 APTT 24.5 Seconds (21.0-31.0) 01/11/19 11:11 PTT Ratio 0.9 01/11/19 11:11 Sodium 139 mmol/L (136-145) 01/27/19 07:01 Potassium 4.3 mmol/L (3.5-5.1) 01/27/19 07:01 Chloride 108 mmol/L (98-107) H 01/27/19 07:01 Carbon Dioxide 24 mmol/L (21-32) 01/27/19 07:01 Anion Gap 7.0 (3-11) 01/27/19 07:01 BUN 18 mg/dl (7-18) 01/27/19 07:01 Creatinine 0.64 mg/dl (0.6-1.2) 01/27/19 07:01 Est Cr Clr Drug Dosing 78.4 ml/min 01/27/19 07:01 Est GFR ( Amer) 99.1 01/27/19 07:01 Est GFR (Non-Af Amer) 85.5 01/27/19 07:01 BUN/Creatinine Ratio 28.1 (10-20) H 01/27/19 07:01 Glucose 153 mg/dl (70-99) H 01/27/19 07:01 POC Glucose 133 (70-99) H 01/26/19 11:08 Estimat Average Glucose 148 mg/dl 01/11/19 11:11 Hemoglobin A1c 6.8 % (4.5-5.6) H 01/11/19 11:11 Calcium 8.8 mg/dl (8.5-10.1) 01/27/19 07:01 Albumin 3.5 gm/dl (3.4-5.0) 01/11/19 11:11 Urine Color Yellow 01/11/19 Unknown Urine Appearance Clear (Clear) 01/11/19 Unknown Urine pH 8.5 (4.5-7.5) H 01/11/19 Unknown Ur Specific [place] 1.018 (1.000-1.030) 01/11/19 Unknown Urine Protein Negative (Negative) 01/11/19 Unknown Urine Glucose (UA) Negative (Negative) 01/11/19 Unknown Urine Ketones Negative (Negative) 01/11/19 Unknown Urine Blood Negative (Negative) 01/11/19 Unknown Urine Nitrite Negative (Negative) 01/11/19 Unknown Urine Bilirubin Negative (Negative) 01/11/19 Unknown Urine Urobilinogen Negative (Negative) 01/11/19 Unknown Ur Leukocyte Esterase Negative (Negative) 01/11/19 Unknown Blood Type A Positive 01/11/19 11:11 Antibody Screen NEGATIVE 01/11/19 11:11 Total Time Total Time Spent Total Time Spent (In Minutes): 20 Total Time Includes: Examination of the Patient, Discharge Planning and Medication Reconciliation Discharge Plan Discharge Items Patient Disposition: Transfer Inpatient Rehab Fac Reason For Visit: Unilateral Primary Osteoarthritis, Left Knee Discharge Diagnosis: left total knee replacement Condition: Good Discharge Goals: Decrease discomfort and Improve function Activity: Per 'Additional Instructions' section Lifting: Wait until after follow-up appointment Weightbearing: Left weightbearing Weightbearing Comment: WBAT with walker Non-emergency contact: Primary Care Provider and Surgeon Call non-emergency contact if: you have any medication questions, your temperature is above 101, your wound has increased redness, your wound has increased drainage and your wound pain has increased Follow-up/Referrals: Luis Alberto Adame [Primary Care Provider] - Diet: Regular Addtl Provider Instructions: ACTIVITY RECOMMENDATIONS: SELF CARE INSTRUCTIONS AFTER TOTAL KNEE REPLACEMENT A. You may need to continue a physical therapy program after discharge from the hospital. There are several options available to you. Your doctor will assist you in selecting the best one for you. 1. An out-patient facility 2 to 3 times a week for therapy or home therapy. 2. Continue working on all exercises taught to you in the hospital. Your goals should be to increase bending of your knee to 90 degrees and beyond and to fully straighten your knee. B. You may progress at your own pace from walking with a walker or crutches to a cane; then to no assistive devices. C. Make walking a part of your daily routine. Be up as much as comfortable with rest periods throughout the day. Rest with leg elevation is very important. Use the ice wrap frequently for the first 3-4 weeks. D. There are no restrictions on activities. You may ride in a car, shop, participate in fry cook and all social activities. E. Wear the long elastic stockings (TERESITA hose) 20 hours a day for 2 weeks after surgery. They can be removed several times a day for laundering and for a bath. F. You may shower, no tub baths until cleared by your doctor. SPECIAL CARE INSTRUCTIONS: VERY IMPORTANT TO READ AND REVIEW A. There are a few signs you need to watch for after you are home. Call [facility] if you notice any of the followin. Increased severe knee pain. Some pain is expected especially when you exercise. 2. Increased swelling in your leg or knee; pain or swelling of the calf muscle in either lower leg. 3. Any fluid drainage from the incision. 4. Shortness of breath or chest pain. B. Please call [facility] at if you have any concerns or questions about your operation or recovery. The doctor or his nurse will return your call promptly. C. You must take antibiotics before dental work, bladder, bowel or other surgery. Your doctor will provide you with a permanent care to carry describing this precaution. IMPORTANT: * REMEMBER TO TAKE ASPIRIN, 81 MG, TWICE DAILY FOR 4 WEEKS UNLESS OTHERWISE DIRECTED. THIS IS YOUR BLOOD THINNER. * HIGH RISK PATIENTS MAY BE PRESCRIBED A STRONGER BLOOD THINNER. THIS WILL BE PROVIDED AT DISCHARGE. * CALL IF INCREASED PAIN, REDNESS, DRAINAGE OR FEVER GREATER THAT 101. * WEAR TERESITA HOSE 20 HOURS PER DAY FOR 2 WEEKS. * SEMAJ Dressing- This is a large suction dressing covering your incision. This will help pull any excess drainage from the wound and allow your incision to heal properly. You may shower with this if you can keep the unit outside of the shower. If any bleeding or leakage is noted please call your doctor's office. This will remain on your incision for 7 days and then should be removed. This can be done yourself or by the home nursing staff if applicable. The entire unit is disposable once removed. Once removed, keep incision clean and dry. If redness or drainage is noted, please call your surgeon. ONCE DRESSING IS REMOVED: *DERMABOND Prineo- This is a mesh tape dressing that is covered with glue. It should remain in place until the incision is properly healed, usually 10-14 days. This dressing is designed to naturally slough off. You may trim the excess mesh tape as it peels off. Incision may be briefly wet in a shower. Dry immediately by blotting with a clean, dry towel. Do not bath or swim until instructed by your doctor. Do not scratch, rub, or pick at the dressing. Do not apply any topical ointments or lotions until dressing is completely removed and/or instructed by your doctor. There may be a small piece of suture material at one end of your incision. Do not pull or trim this. If it is bothersome or catching on clothing, you may cover it with a band-aid. FOLLOW UP VISIT: If appointment is not already scheduled: Please call [facility] to make a follow-up appointment for 2 weeks after your surgery at . Prescriptions: New celecoxib [Celebrex] 200 mg Capsule 200 mg PO BID 30 Days Qty: 60 RF: 0 hydrocodone-acetaminophen [[place]] 5-325 mg Tablet 1 tab PO Q4 PRN (Reason: pain) Qty: 30 RF: 0 aspirin [Ecotrin Low Strength] 81 mg Tablet,Delayed Release (Dr/Ec) 81 mg PO BID 30 Days Qty: 60 RF: 0 docusate sodium 100 mg Capsule 100 mg PO BID 10 Days Qty: 20 RF: 0 clindamycin HCl 300 mg capsule 300 mg PO TID 7 Days Qty: 21 RF: 0 Continued ascorbic acid (vitamin C) [Vitamin C With Isela Hips] 1,000 mg Tablet 1,000 mg PO QAM RF: 0 magnesium oxide 500 mg Tablet 500 mg PO HS RF: 0 nitroglycerin [Nitrostat] 0.4 mg Tablet, Sublingual 1 dose sublingual UD PRN (Reason: Chest Pain) RF: 0 metoprolol succinate 25 mg Tablet Extended Release 24 Hr 25 mg PO QAM RF: 0 calcium carbonate-vitamin D3 [Calcium 500 + D] 500 mg(1,250mg) -400 unit Tablet 1 tab PO BID RF: 0 cholecalciferol (vitamin D3) [Vitamin D3] 5,000 unit Tablet 5,000 unit PO QAM RF: 0 Refresh P.M. 57.3-42.5 % Ointment 1 applic OPHTHALMIC (EYE) HS RF: 0 Refresh Optive Advanced 0.5-1-0.5 % Drops 1 drp OPHTHALMIC (EYE) QID RF: 0 Benefiber Sugar Free (dextrin) 3 gram/4 gram Powder 2 tsp PO QAM RF: 0 Discontinued aspirin [Aspirin Low Dose] 81 mg Tablet,Delayed Release (Dr/Ec) 81 mg PO HS RF: 0 coenzyme Q10 [CoQ-10] 100 mg Capsule 100 mg PO QAM RF: 0 oregano oil 1,500 mg Capsule 1 cap PO QAM RF: 0 Krill Oil ([place] 3 and 6) 1,500-165-67.5 mg Capsule 1 cap PO QAM RF: 0 cranberry conc-ascorbic acid 4,200-20 mg Capsule 1 cap PO QAM RF: 0 ICaps AREDS 7,160-113-100 [id number] Tablet,Delayed Release (Dr/Ec) 1 tab PO QAM RF: 0 Cod Liver Oil plus Dylan and D3 1,250 unit-130 unit-530 mg Capsule 1 cap PO HS RF: 0 Stand-Alone Forms: [facility]/Other Patient Handouts: Prediabetes, Diabetes Meal Planning Discharge Orders: Discharge Order (Routine); Ordered 01/28/19 Ordered By: Robert Dejesus Skilled Items Patient informed of condition?: Yes DNR: No Discharge Level of Care: Acute rehab Communicable Disease: No Discharge Prognosis: Stable Admission Data Admit Date/Time: 01/26/19 15:40 Attending Provider: Joaquin Oakes Admit Provider: Joaquin Oakes Primary Care Provider: Luis Alberto Adame Service: Surgical Services Other Interventions: Discharge Summary Assessment (RN) Last Done: 01/28/19 10:12 Pending Studies at Discharge: No DC Date/Time DO NOT enter until pt leaves facility: 01/28/19 13:40
== END 2019-01-28 13:40 | DRG 470 ==
LOC: ASU 10:12 → 3E 15:40
DX: Z79.82 Long term (current) use of aspirin; Z79.899 Other long term (current) drug therapy; Z87.891 Personal history of nicotine dependence; I25.10 Atherosclerotic heart disease of native coronary artery without angina pectoris; M17.12 Unilateral primary osteoarthritis, left knee

== ENCOUNTER 2022-04-23 06:08 | Observation (INO) ==
--- NOTE | 2022-04-17 08:32 | Anesthesiology Consultation ---
Date of Service April 17, 2022 Assessment & Plan (1) Encounter for pre-operative examination: Chart Review Chart Review: Acceptable Risk for Surgery (pending preop Covid testing results and DOS labs ) and Patient NOT seen in Pre Admission Testing Pt initially scheduled for surgery 02/12/22 (seen in PAT 01/24/22)- surgery postponed secondary to insurance issues - Needs updated preop labs- will order CBC with diff and PRP for stat AM of surgery - Per 01/24/22 Anesthesia Consultation- Family hx: Mother- "very slow" for her to come out of surgery. She does not remember details but that it did require her and her siblings to have testing done. She states brother tested positive as well but patient personally tested negative. She states she is unable to obtain further information/specifics regarding this. Patient received sevo + nohemi with Left TKA done 01/26/19 under [facility] at [facility] without issue. Cheyenne Rubin PA-C reviewed with Dr. Lu per 01/24/22 Anesthesia Consultation. He feels that nothing further needed prior to surgery and does not feel that further documentation required based on available information. At anesthesiologist d iscretion AM DOS regarding anesthetic use. Per nursing assessment 04/16/22, patient denies any recent travel. No known Covid positive exposures or Covid related symptoms. No known Covid infection in the past 90 days. Pt is fully vaccinated for Covid. Preop Covid testing scheduled 04/21/22= will await results. - S/P Left TKA (01/26/19): unable to get to CSI > [place] (Grade view 1, Kirby#2, ETT 7.0, atraumatic + PNB) at [facility] Pt seen by PCP 01/30/22= seen for preop evaluation. Hold Eliquis 3 days as directed. Recent cardio consult noted, reviewed. Pt cleared medically for upcoming procedure. Did treat patient with Macrobid for UTI noted on UA. Repeat BP in office was 121/50. Pt seen by cardio 01/20/22= "Patient states that she was told to stop aspirin while on Eliquis. Typically aspirin 81mg is not discontinued while taking Eliquis. At this point, she is having surgery 02/12/22 and I instructed her to not take the aspirin until after surgery. Patient BP is not at goal. Patient states her BP has been steadily increasing. We will stop Toprol and initiate metoprolol tartate 50 mg BID.. Based on history, physical examination and the above information, do not recommend further invasive or noninvasive cardiovascular testing or procedures prior to undergoing planned orthopedic surgery. Patient should be considered a low to intermediate cardiovascular risk candidate. Patient is on Eliquis due to her history of pulmonary embolism. Discussed when to hold Eliquis prior to surgery with patient's primary care physician." BP at PAT visit 01/24/22 was improved at 149/68. History Surgery Operation Date: 04/23/22 13:15 Proposed Procedures p C3-C4 Anterior Cervical Discectomy Fusion, Spinal Cord Monitoring - Humberto Murphy DO Height/Weight Height: 5 ft 3.5 in Weight: 81.193 kg Allergies Allergy/AdvReac Type Severity Reaction Status Date / Time Penicillins Allergy Severe Dyspnea, Verified 04/16/22 08:34 diffuse swelling pineapple Allergy Severe Anaphylaxis Verified 04/16/22 08:34 nickel Allergy Intermediate Blistering Verified 04/16/22 08:34 Cephalosporins AdvReac Mild Keflex Verified 04/16/22 08:34 (N/V) Iodinated Contrast Media AdvReac Mild N/V Verified 04/16/22 08:34 Medications Home Medications Medication Instructions Recorded Confirmed Last Taken ascorbic acid (vitamin C) 1,000 mg 1,000 mg PO QAM 01/05/19 04/16/22 01/12/19 07:30 tablet (Vitamin C With Isela Hips) [id number] 1 drp ophthalmic (eye) UD 01/05/19 04/16/22 01/26/19 08:00 80 0.5 %-1 %-0.5 % eye drops (Refresh Optive Advanced) cholecalciferol (vitamin D3) 125 5,000 unit PO QAM 01/05/19 04/16/22 01/12/19 08:00 mcg (5,000 unit) tablet (Vitamin D3) magnesium oxide 500 mg tablet 500 mg PO HS 01/05/19 04/16/22 01/25/19 22:00 nitroglycerin 0.4 mg sublingual 1 dose sublingual UD PRN Chest Pain 01/05/19 04/16/22 Unknown tablet (Nitrostat) acetaminophen 650 mg 650 - 1,300 mg PO Q12H PRN Pain 01/23/22 04/16/22 Unknown tablet,extended release apixaban 5 mg tablet (Eliquis) 5 mg PO BID 01/23/22 04/16/22 Unknown cod liver oil 1 cap PO HS 01/23/22 04/16/22 Unknown cyanocobalamin (vitamin B-12) 2,500 mcg PO QAM 01/23/22 04/16/22 Unknown 2,500 mcg tablet folic acid 0.8 mg capsule 0.8 mg PO QAM 01/23/22 04/16/22 Unknown metoprolol tartrate 50 mg tablet 50 mg PO BID 01/23/22 04/16/22 Unknown potassium 99 mg tablet 99 mg PO QAM 01/23/22 04/16/22 Unknown ranolazine 500 mg tablet,extended 500 mg PO BID 01/23/22 04/16/22 Unknown release,12 hr vit C,E,zinc,copper-[id number] 250 2 cap PO BID 01/23/22 04/16/22 Unknown mg-lutein 5 mg-zeaxanthin 1 mg capsule (Ocuvite Adult 50 Plus) Past Medical History Medical History Anxiety 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 Medically managed. Follows with cardio (Dr. Kyle/[facility]) Deep vein thrombosis Multiple- on Eliquis Depression History of COVID-19 01/2020 > dx while being treated for kidney stones>asymptomatic for Covid Hypertension Kidney stones Hx Migraine Hx Myocardial Infarction 01/2021; Dr. Kyle, [facility] Pulmonary embolism 01/2021- on Eliquis Sleep apnea Told to stop using CPAP "because I wake up gasping for air with it on" Past Family History Family History Aunt Family history of diabetes mellitus Uncle Family history of diabetes mellitus Sister Family history of diabetes mellitus Mother Family hx of colon cancer Family history of diabetes mellitus FHx: ovarian cancer History of anesthesia problem Very slow to wake- required family to get testing- patient tested negative (but patient cannot give specifics of what the testing was for) Brother Family hx of colon cancer Past Surgical History Surgical History Fusion of spine X4 SURGERIES TOTAL FUSED FROM T11-S1 (DR MURPHY, [facility]) Fusion of spine C4-C7 DIFFICULTY TURNING TO RIGHT, LIMITED CERVICAL EXTENSIO PER PT History of adenoidectomy History of anesthesia reaction "slow to wake" History of appendectomy History of arthroplasty of left knee Left TKA (01/26/19): unable to get to [facility] > [place] (Grade view 1, [place]#2, ETT 7.0, atraumatic + PNB) at [facility] History of cardiac cath X3 (LAST ONE 2012), NO STENTS History of carpal tunnel release RIGHT & LEFT History of cataract surgery BILATERAL History of cholecystectomy History of colonoscopy History of cystoscopy History of dilatation and curettage History of discectomy CERVICAL AREA History of discectomy LUMBAR History of esophageal dilatation History of esophagogastroduodenoscopy (EGD) History of lithotripsy History of Summer fundoplication History of tonsillectomy S/P LARON-BSO Status post laser ablation of incompetent vein RLE Status post surgery OPEN CHEST SURGERY TO REMOVE BENIGN TUMOR OF THYMUS. ([facility]) Social History Smoking Status: Former smoker tobacco type: cigarettes Do You Dip or Chew Tobacco: No Smoking End Date: quit 50+ years ago Hx Alcohol Use: Yes Alcohol type: wine alcohol intake frequency: holidays/special occasions only Hx Substance Use: No substance use type: does not use Testing Electrocardiogram Date: 01/20/22 Sinus rhythm at 82 bpm. Poor R wave progressionmay be secondary to pulmonary disease, consider old anterior infarct. Nonspecific T wave abnormality. Low voltagepossible pulmonary disease. EKG done at preop cardiology visit from same day* Chest X-Ray Date: 01/24/22 FINDINGS: Frontal and lateral radiographs of the chest demonstrate the cardiomediastinal silhouette to be within normal limits. The patient is status post previous cardiothoracic surgery. The lungs are clear of alveolar opacities. There is again asymmetric elevation of the right hemidiaphragm particularly anteriorly. There is no evidence for effusion bilaterally. There is no evidence for vascular congestion. There is no acute osseous pathology. The patient is again status post internal fixation of the lower thoracic and upper lumbar spine. IMPRESSION: 1. No acute cardiopulmonary disease. Echocardiogram Date: 01/02/22 EF 50-55%. No obvious regional wall motion abnormality. No significant valvular disease. Stress Test Date: 12/13/18 Type:nuclear Patient had nonspecific symptoms with pharmacologic stress. Hemodynamic response to stress was normal. There is no electrocardiographic criteria for myocardial ischemia. Myocardial perfusion imaging is abnormal. Myocardial ischemia involving a small area of the left ventricular apex. Myocardial infarction is not present. EF is 50%. Wall motion is normal. Conclusion: Small area of mild apical ischemia. No infarct. (Stress test noted in cardio records - no further testing needed per 12/2021 cardio note)
[~2022-04-23 06:08] MED LIST changes: -BUPIVACAINE 0.5 % 5 MG/1 ML PF 10ML VIAL ONE; -CLINDAMYCIN 600 MG/54 ML BAG IV SCH; +CLINDAMYCIN/D5W 600 MG/50 ML BAG **Premixed Bag IV SCH; +GABAPENTIN 300 MG CAP PO SCH; -GABAPENTIN 300 MG PO SCH; +LR 15ML/HR IV SCH; -LR 500ML BOLUS, THEN 15ML/HR IV SCH; -METOCLOPRAMIDE HCL 10 MG TABLET PO SCH; -ROPIVACAINE 0.5% 5 MG/ML 30 ML VIAL ONE; -ROPIVACAINE 0.5% HCL/PF 150 MG, BUPIVACAINE 0.5% MPF 30 ML, EPINEPHrine 30MG/30ML (OR U... INFIL SCH; -TRANEXAMIC ACID 1,000 MG **IV Intra-op IV SCH; -TRANEXAMIC ACID 1,000 MG **IV Pre-op IV SCH; -dexAMETHasone 4 MG TAB PO SCH
[2022-04-23] MEDS ORDERED: PROPOFOL IV EMULSION 10 MG/ML 100 ML VIAL IV ONE (06:37)
[2022-04-23] MEDS ORDERED: PROPOFOL IV EMULSION 10 MG/ML 20 ML VIAL IV ONE (06:58)
[2022-04-23] MEDS ORDERED: DEXAMETHASONE SOD INJ 4 MG/ML VIAL ONE (06:58)
[2022-04-23] MEDS ORDERED: GLYCOPYRROLATE 0.2 MG/ML VIAL ONE (06:58)
[2022-04-23] MEDS ORDERED: NEOSTIGMINE METHYLSULFATE 1 MG/ML 10ML VIAL ONE (06:58)
[2022-04-23] MEDS ORDERED: ONDANSETRON INJ 2 MG/ML 2 ML VIAL ONE ×2 (06:58→09:02)
[2022-04-23] MEDS ORDERED: LARYING-O-JET KIT (LTA) ONE (06:59)
[2022-04-23] MEDS ORDERED: fentaNYL citrate 100 MCG/2 ML VIAL ONE (06:59)
[2022-04-23] MEDS ORDERED: SUCCINYLCHOLINE CHLORIDE 20 MG/ML 10 ML VIAL IV ONE (06:59)
[2022-04-23] MEDS ORDERED: LIDOCAINE 2% 20 MG/ML 5 ML SYR IV ONE (06:59)
[2022-04-23 07:10] LABS: Partial Thromboplastin Ratio 0.9; Partial Thromboplastin Time 25.9 Seconds (21.0-31.0); Prothrombin Time 10.3 Seconds (9.0-12.0)
[2022-04-23 07:21] LABS: Basophils # (auto) 0.06 K/uL (0-0.2); Basophils % (auto) 0.8 %; Eosinophils # (auto) 0.23 K/uL (0-0.50); Eosinophils % (auto) 2.9 %; Hematocrit (blood only) 38.8 % (34.1-44.9); Hemoglobin 13.4 g/dl (12.0-16.0); Immature Granulocytes # (auto) 0.02 K/uL (0.00-0.02); Immature Granulocytes % (auto) 0.3 %; Lymphocytes # (auto) 2.83 K/uL (1.2-3.4); Lymphocytes % (auto) 36.1 %; Mean Corpuscular Hemoglobin 30.3 pg (25.0-34.0); Mean Corpuscular Hgb Conc 34.5 g/dL (32.0-36.0); Mean Corpuscular Volume 87.8 fL (80.0-100.0); Mean Platelet Volume 9.8 fL (9.4-12.3); Monocytes # (auto) 0.62 K/uL (0.24-0.82); Monocytes % (auto) 7.9 %; Neutrophils # (auto) 4.09 K/uL (1.4-6.5); Platelet Count 241 K/uL (130-400); RDW Coefficient of Variation 12.4 % (11.5-14.5); RDW Standard Deviation 40.2 fL (36.4-46.3); Red Blood Count 4.42 M/uL (3.93-5.22); White Blood Count 7.85 K/ul (4.8-10.8)
[2022-04-23] MEDS ORDERED: ePHEDrine sulfate 50 MG/ML AMP IV PRN (07:26)
[2022-04-23] MEDS ORDERED: HYDROmorphone INJ 2 MG/ML SYR/VIAL IV PRN (07:26)
[2022-04-23] MEDS ORDERED: ONDANSETRON INJ 2 MG/ML 2 ML VIAL IV PRN ×2 (07:26→11:44)
[2022-04-23] MEDS ORDERED: ATROPINE SULFATE 0.1 MG/ML 10ML SYR IV PRN (07:26)
--- NOTE | 2022-04-23 07:30 | History & Physical Bridge Note ---
Date of Service April 23, 2022 History & Physical Bridge Note I have examined the patient, reviewed the History & Physical and in the interval since the performance of the History & Physical I have noted the following changes of clinical significance: no changes noted
--- NOTE | 2022-04-23 07:31 | History & Physical Report ---
Date of Service April 23, 2022 Assessment & Plan (1) Cervical stenosis of spinal canal: Plan: C3-C4 anterior cervical discectomy and fusion History of Present Illness Chief Complaint: Neck and bilateral arm pain Primary Care Provider: Luis Alberto Adame This is an 81-year-old female presents with worsening neck and arm pain after failing course of nonoperative care is here for surgical invention. Allergies Allergy/AdvReac Type Severity Reaction Status Date / Time Penicillins Allergy Severe Dyspnea, Verified 04/23/22 06:47 diffuse swelling pineapple Allergy Severe Anaphylaxis Verified 04/23/22 06:47 nickel Allergy Intermediate Blistering Verified 04/23/22 06:47 Cephalosporins AdvReac Mild Keflex Verified 04/23/22 06:47 (N/V) Iodinated Contrast Media AdvReac Mild N/V Verified 04/23/22 06:47 Home Medications Medication Instructions Recorded Confirmed Type ascorbic acid (vitamin C) 1,000 mg 1,000 mg PO QAM 01/05/19 04/23/22 History tablet (Vitamin C With Isela Hips) malcwhwbgyfqnydzfvwuqj-yaygnhba-ntqzgure 1 drp ophthalmic (eye) UD 01/05/19 04/23/22 History 80 0.5 %-1 %-0.5 % eye drops (Refresh Optive Advanced) cholecalciferol (vitamin D3) 125 5,000 unit PO QAM 01/05/19 04/23/22 History mcg (5,000 unit) tablet (Vitamin D3) magnesium oxide 500 mg tablet 500 mg PO HS 01/05/19 04/23/22 History nitroglycerin 0.4 mg sublingual 1 dose sublingual UD PRN Chest Pain 01/05/19 04/23/22 History tablet (Nitrostat) acetaminophen 650 mg 650 - 1,300 mg PO Q12H PRN Pain 01/23/22 04/23/22 History tablet,extended release apixaban 5 mg tablet (Eliquis) 5 mg PO BID 01/23/22 04/23/22 History cod liver oil 1 cap PO HS 01/23/22 04/23/22 History cyanocobalamin (vitamin B-12) 2,500 mcg PO QAM 01/23/22 04/23/22 History 2,500 mcg tablet folic acid 0.8 mg capsule 0.8 mg PO QAM 01/23/22 04/23/22 History metoprolol tartrate 50 mg tablet 50 mg PO BID 01/23/22 04/23/22 History potassium 99 mg tablet 99 mg PO QAM 01/23/22 04/23/22 History ranolazine 500 mg tablet,extended 500 mg PO BID 01/23/22 04/23/22 History release,12 hr (Ranexa) vit C,E,zinc,copper-dgnbr5o 250 2 cap PO BID 01/23/22 04/23/22 History mg-lutein 5 mg-zeaxanthin 1 mg capsule (Ocuvite Adult 50 Plus) Past Med/Surg History Medical History Anxiety 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 Medically managed. Follows with cardio (Dr. Kyle/[facility]) Deep vein thrombosis Multiple- on Eliquis Depression History of COVID-19 01/2020 > dx while being treated for kidney stones>asymptomatic for Covid Hypertension Kidney stones Hx Migraine Hx Myocardial Infarction 01/2021; Dr. Kyle, [facility] Pulmonary embolism 01/2021- on Eliquis Sleep apnea Told to stop using CPAP "because I wake up gasping for air with it on" Surgical History Fusion of spine X4 SURGERIES TOTAL FUSED FROM T11-S1 (DR KOEHLER, [facility]) Fusion of spine C4-C7 DIFFICULTY TURNING TO RIGHT, LIMITED CERVICAL EXTENSIO PER PT History of adenoidectomy History of anesthesia reaction "slow to wake" History of appendectomy History of arthroplasty of left knee Left TKA (01/26/19): unable to get to CSI > [place] (Grade view 1, Kirby#2, ETT 7.0, atraumatic + PNB) at [facility] History of cardiac cath X3 (LAST ONE 2012), NO STENTS History of carpal tunnel release RIGHT & LEFT History of cataract surgery BILATERAL History of cholecystectomy History of colonoscopy History of cystoscopy History of dilatation and curettage History of discectomy CERVICAL AREA History of discectomy LUMBAR History of esophageal dilatation History of esophagogastroduodenoscopy (EGD) History of lithotripsy History of Summer fundoplication History of tonsillectomy S/P LARON-BSO Status post laser ablation of incompetent vein RLE Status post surgery OPEN CHEST SURGERY TO REMOVE BENIGN TUMOR OF THYMUS. ([facility]) Family History Aunt Family history of diabetes mellitus Uncle Family history of diabetes mellitus Sister Family history of diabetes mellitus Mother Family hx of colon cancer Family history of diabetes mellitus FHx: ovarian cancer History of anesthesia problem Very slow to wake- required family to get testing- patient tested negative (but patient cannot give specifics of what the testing was for) Brother Family hx of colon cancer Social History Smoking Status: Former smoker Age Quit Using Tobacco: 34; Smoking End Date: quit 50+ years ago; Second Hand Exposure: No; Do You Dip or Chew Tobacco: No; Tobacco Cessation Education Requested by Patient: No Hx Alcohol Use: Yes Alcohol type: wine Hx Substance Use: No Preferred Language: French Communication Ability: Effective Claim Agent Required: No Beliefs That Will Affect Care: None marital status: Current Living Situation: Alone current occupational status: retired Other Information That Helps Us Care for You: No Feels Safe at Home: Yes Safety Concerns: Feels Safe At This Time Assistive Devices: Denture - Upper, Denture - Lower and Glasses Physical Exam Physical Exam: Patient is alert and oriented Heart regular rhythm Lungs clear Results & Data Results & Data ([facility]) Vital Signs (Past 12 Hours) Vital Signs Temp Pulse Resp BP Pulse Ox O2 Del Method 04/23/22 06:52 36.5 C 71 20 163/72 H 95 Room Air
[2022-04-23 08:03] LABS: BUN Creatinine Ratio 26.4 (10-20); Calcium 8.8 mg/dl (8.5-10.1); Creatinine Clr Calc Pharmacy 62.5 ml/min; Est GFR (Non-African American) 78.5 ml/min; Potassium 3.8 mmol/L (3.5-5.1)
[2022-04-23] MEDS ORDERED: FLOSEAL HEMOSTATIC MATRIX 10ML TOP ONE (08:26)
[2022-04-23] MEDS ORDERED: ePHEDrine sulfate 50 MG/ML SYR ONE (08:47)
[2022-04-23] MEDS ORDERED: PHENYLEPHRINE 100MCG/ML 5ML SYR ONE (08:47)
--- NOTE | 2022-04-23 09:10 | Operative Report ---
Post Operative Report Pre & Post Diagnosis Operation Date: 04/23/22 07:45 Pre-Op Diagnosis: Spinal stenosis with myelopathy Post-Op Diagnosis: Same I identified the patient and participated in the time-out.: Yes Procedure Operation Date: 04/23/22 07:45 Actual Procedures #1 anterior cervical discectomy with bilateral foraminotomies C3-C4. #2 anterior cervical arthrodesis C3-C4. #3 placement of 8 mm globus coalition cage filled with I factor C3-C4. Surgeon Humberto Murphy, Knitted Garment Finisher Lauren Linares Estimated Blood Loss 10 Findings Consistent with Post-Op Diagnosis Specimens None Indications This is an 81-year-old female known to me the presents with progressive cervical myelopathy. Subsequently she is here for surgical invention. Description of Procedure Patient was met with identified informed consent obtained. Patient was then taken to the operative suite underwent ablation placed in the supine position the Zachary table the head Lombardi transcribing operator head. All bony prominences well- padded eyes inspected to ensure no external pressure placed upon them. This point the anterior cervical spine was prepped and draped in normal sterile fashion. The assistance of fluoroscopy identify the C3-C4 disc base and a transverse incision was placed along the right anterior aspect of the cervical spine overlying this region. Blunt dissection with assistance of bipolar electrocautery was performed down to and exposing the anterior cervical spine at C3-C4. A self-retaining retractors placed. Then formed a complete discectomy of C3-C4 out to the uncovertebral joints bilaterally. [place] distraction pins were utilized to assist in visualization. I removed all posterior annular fibers and longitudinal ligament. Bilateral foraminotomies were performed. The endplates were then burred to subcortically bone and an 8 mm coalition cage was tapped into position. 16mm screws were utilized to lock it in the place. The incision was then copiously irrigated explored to ensure no damage to surrounding structures remaining bleeding. 10 round ANDRES drain inserted. The in cision was then closed with 2 Vicryl in a fashion of 4 Monocryl for final skin closure. Steri-Strip sterile dressings placed. Patient waken taken to PACU stable condition. Please note spinal cord monitoring was last at the procedure no changes noted. Lastly Lauren Linares was present out the entire surgery involved in patient positioning complex portions of the surgery and final skin closure. I attest to the content of the Intraoperative Record and any orders documented therein. Any exceptions are noted below.
[2022-04-23] MEDS: fentaNYL citrate 100 MCG/2 ML VIAL IV PRN ×2 (09:29→09:36)
--- NOTE | 2022-04-23 09:38 | Fluoroscopy Report ---
FL cervical 2-3V CLINICAL HISTORY: ACDF C3-4 COMPARISON STUDY: None. FLUOROSCOPY TIME: 15 second. FINDINGS: 2 fluoroscopic spot images of the cervical spine demonstrate anterior cervical discectomy a nd fusion at C3-C4. There is a prior ACDF at C4-C7. The hardware appears intact. A surgical sponge is noted anterior to the fusion site. IMPRESSION: Fluoroscopic assistance provided for C3-C4 ACDF. ACT 112: Negative or not required by law. Electronically signed by: Jake Roy M.D. 04/23/2022 9:36 AM
[2022-04-23] MEDS ORDERED: DROPERIDOL 5 MG/2 ML VIAL IV STA (10:12)
--- NOTE | 2022-04-23 11:03 | Anesthesiology Progress Note ---
Date of Service April 23, 2022 Anesthesia Post Procedure Vital Signs Vital Signs: Temp Pulse Pulse Resp BP Pulse Ox O2 Del Method 04/23/22 10:50 62 15 127/59 L 95 Nasal Cannula 04/23/22 10:40 36 C L 68 16 128/65 96 Nasal Cannula 04/23/22 10:30 68 13 127/61 96 Nasal Cannula 04/23/22 10:20 36 C L 58 L 12 122/59 L 97 Oxymask 04/23/22 10:10 60 14 136/65 98 Oxymask 04/23/22 10:00 59 L 14 136/62 97 Oxymask 04/23/22 09:50 58 L 12 128/59 L 98 Oxymask 04/23/22 09:40 59 L 15 124/72 96 Oxymask 04/23/22 09:30 64 13 136/71 99 Oxymask 04/23/22 09:20 36.1 C L 62 18 123/61 98 Oxymask 04/23/22 06:52 36.5 C 71 20 163/72 H 95 Room Air O2 Flow Rate 04/23/22 10:50 2 04/23/22 10:40 2 04/23/22 10:30 2 04/23/22 10:20 2 04/23/22 10:10 4 04/23/22 10:00 4 04/23/22 09:50 4 04/23/22 09:40 6 04/23/22 09:30 6 04/23/22 09:20 6 04/23/22 06:52 Pain Intensity Neck: Pain Intensity: 4 Transfer of Care Handoff Completed per policy Notes Mental Status: alert / awake / arousable and participated in evaluation Patient Amnestic to Procedure: Yes Nausea / Vomiting: adequately controlled Pain: adequately controlled Airway Patency, RR, SpO2: stable & adequate BP & HR: stable & adequate Hydration State: stable & adequate Anesthetic Complications: no major complications apparent and Pt Satisfied with anesthetic care Notes: pt with right sided arm and leg numbness. motor intact. i informed dr sahni
[2022-04-23] MEDS ORDERED: oxyCODONE HCL IR 5 MG TAB (IMMEDIATE RELEASE) PO PRN (11:44)
[2022-04-23] MEDS ORDERED: LORazepam 0.5 MG TAB PO PRN (11:44)
[2022-04-23] MEDS ORDERED: dexAMETHasone 8 MG in SYRINGE 0 ML IV PRN (11:44)
[2022-04-23] MEDS ORDERED: NITROGLYCERIN SL 0.4 MG/TAB TAB SL PRN (11:44)
[2022-04-23] MEDS ORDERED: RACEPINEPHRINE 2.25% NEBU SOLN 0.5 ML VIAL INH PRN (11:44)
[2022-04-23] MEDS ORDERED: ACETAMINOPHEN 1,000 MG/100 ML VIAL IV PRN (11:44)
[2022-04-23] MEDS ORDERED: MAGNESIUM HYDROXIDE SUSP 30 ML UDC PO PRN (11:44)
[2022-04-23] MEDS ORDERED: ACETAMINOPHEN 500 MG TAB PO PRN (11:44)
[2022-04-23] MEDS ORDERED: diphenhydrAMINE Capsule 25 MG CAP PO PRN (11:44)
[2022-04-23] MEDS ORDERED: hydrOXYzine HCl 25 MG TAB PO PRN (11:44)
[2022-04-23] MEDS ORDERED: LORazepam 0.5 MG in SYRINGE 0.25 ML IV PRN (11:44)
[2022-04-23] MEDS ORDERED: METOCLOPRAMIDE HCL INJ 5 MG/ML 2 ML VIAL IV PRN (11:44)
[2022-04-23] MEDS ORDERED: NALOXONE HCL 0.4 MG/1 ML VIAL/CARP IV PRN (11:44)
[2022-04-23] MEDS ORDERED: PROMETHAZINE HCL 12.5 MG in SODIUM CHLORIDE 0.9% 50 ML IV PRN (11:44)
[2022-04-23] MEDS ORDERED: HYDROmorphone INJ 0.5 MG/0.5 ML SYR IV PRN (11:44)
[2022-04-23] MEDS ORDERED: bisacodyL 10 MG SUPP PR PRN (11:44)
[2022-04-23] MEDS ORDERED: FAMOTIDINE 20 MG TAB PO PRN (11:44)
[2022-04-23] MEDS ORDERED: SOD PHOSPHATE/SOD BIPHOSPHATE ENEMA 132 ML BTL PR PRN (11:44)
[2022-04-23] MEDS ORDERED: ALUMINUM/MAGNESIUM SUSP 30 ML UDC PO PRN (11:44)
[2022-04-23] MEDS ORDERED: traMADol HCL 50 MG TABLET PO PRN (11:44)
[2022-04-23] MEDS ORDERED: ONDANSETRON 4 MG OD TAB PO PRN (11:44)
[2022-04-23] MEDS ORDERED: HYDROmorphone INJ 1 MG/ML SYRINGE IV PRN (11:44)
[2022-04-23] MEDS ORDERED: ARTIFICIAL TEARS OP PRN (13:15)
[2022-04-23] MEDS: SODIUM CHLORIDE 0.9% 1000ML 1,000 ML IV SCH ×2 (13:30→23:17)
[2022-04-23] MEDS: CLINDAMYCIN 600 MG in DEXTROSE 5% 50 ML IV SCH ×2 (15:57→23:17)
[2022-04-23] MEDS: METOPROLOL TARTRATE 50 MG TAB PO SCH (21:23)
[2022-04-23] MEDS: DOCUSATE SODIUM/SENNA 50/8.6MG TAB PO SCH (21:23)
[2022-04-23] MEDS: MAGNESIUM OXIDE 400 MG TAB PO SCH (21:24)
[2022-04-23] MEDS: RANOLAZINE 500 MG ER TAB PO SCH (21:24)
[2022-04-24] MEDS: POLYETHYLENE (MIRALAX) 17 GM PACK PO SCH ×4 (05:42→23:20)
[2022-04-24] MEDS: METOPROLOL TARTRATE 50 MG TAB PO SCH ×2 (08:06→21:18)
[2022-04-24] MEDS: RANOLAZINE 500 MG ER TAB PO SCH ×2 (08:06→21:18)
[2022-04-24] MEDS ORDERED: NON-FORMULARY MEDICATION (Potassium 99 mg Tablet) PO SCH (09:00)
--- NOTE | 2022-04-24 09:34 | Hospitalist Consultation ---
Date of Consultation April 24, 2022 Assessment & Plan (1) S/P spinal surgery: This is an 81yo F with a PMH of CAD, history of PE on Eliquis, HTN, anxiety, depression and other medical problems listed below who is s/p anterior cervical discectomy with bilateral foraminotomies C3-C4. POD#1 s/p anterior cervical discectomy with bilateral foraminotomies C3-C4 Per ortho for pain control, wound care, anticoagulation and activities Monitor H&H (EBL 10ml, pre-op hgb 13.4) - today's CBC is pending Continue incentive spirometry, PT/OT when appropriate (2) Pulmonary embolism: On [employer] anticoagulation - multiple DVTs/PEs 2/ covid in 2019. Eliquis held for 3 days pre-operatively. Following with cardiology. Directed to resume upon discharge home (3) CAD (coronary artery disease): Stable. Continue Ranexa, Lopressor. Aspirin on hold per cardiology note (4) Hypertension: Continue Lopressor (5) Sleep apnea: Intolerant to CPAP but reports hypoxia at night. Continue supplemental O2 PRN Code status: FULL PCP: Deep Dispo: Per primary service Patient seen in collaboration with Dr. Levy. Please see addendum. Thank you for this consultation. We will follow the patient with you during their hospital stay. You can reach a [facility] via [place] [facility]. Supervising Physician Co-Signing Physician Notes Patient was seen and examined independently at bedside. Chart reviewed. Case discussed with Dara Alvarenga PA-C and agree with the documentation above. In summary, this is a 81 year old female with cervical spinal stenosis who underwent ADCF by Dr Murphy yesterday. Sitting at bedside, eating lunch. States some discomfort at surgical site. No N/V/CP/SOB. Normal appetite. Voiding without issues. On exam. AAOx3, chest clear, heart sounds normal, abd benign, neck incision site clean, dry, covered with dressing, ANDRES drain with serosang output. Labs reviewed. Chronic medical conditions stable. Recommend resuming eliquis and aspirin as soon as possible when cleared by surgical team. Further surgical management per Dr Murphy. Rest as per the note above. History of Present Illness Reason for Consultation: post op med mgmt Attending Physician: Humberto M Katherine, DO History of Present Illness This is an 81yo F with a PMH of CAD, history of PE on Eliquis, HTN, anxiety, depression and other medical problems listed below who is POD#1 s/p anterior cervical discectomy with bilateral foraminotomies C3-C4. Patient is feeling well today. Paresthesias and weakness in upper extremities has completely res olved today. Tolerating liquid diet without issue. Denies any fever, chills, congestion, chest pain, shortness of breath, nausea, vomiting, abdominal pain, dysuria, diarrhea or constipation. Eating postoperatively without issue. Receives primary care in [place]. Allergies Allergy/AdvReac Type Severity Reaction Status Date / Time Penicillins Allergy Severe Dyspnea, Verified 04/23/22 06:47 diffuse swelling pineapple Allergy Severe Anaphylaxis Verified 04/23/22 06:47 nickel Allergy Intermediate Blistering Verified 04/23/22 06:47 Cephalosporins AdvReac Mild Keflex Verified 04/23/22 06:47 (N/V) Iodinated Contrast Media AdvReac Mild N/V Verified 04/23/22 06:47 Home Medications Medication Instructions Recorded Confirmed Type ascorbic acid (vitamin C) 1,000 mg 1,000 mg PO QAM 01/05/19 04/23/22 History tablet (Vitamin C With Isela Hips) gkljuubyzfxsvldeuguwfi-kktbdcem-akjjkjgl 1 drp ophthalmic (eye) UD 01/05/19 04/23/22 History 80 0.5 %-1 %-0.5 % eye drops (Refresh Optive Advanced) cholecalciferol (vitamin D3) 125 5,000 unit PO QAM 01/05/19 04/23/22 History mcg (5,000 unit) tablet (Vitamin D3) magnesium oxide 500 mg tablet 500 mg PO HS 01/05/19 04/23/22 History nitroglycerin 0.4 mg sublingual 1 dose sublingual UD PRN Chest Pain 01/05/19 04/23/22 History tablet (Nitrostat) acetaminophen 650 mg 650 - 1,300 mg PO Q12H PRN Pain 01/23/22 04/23/22 History tablet,extended release apixaban 5 mg tablet (Eliquis) 5 mg PO BID 01/23/22 04/23/22 History cod liver oil 1 cap PO HS 01/23/22 04/23/22 History cyanocobalamin (vitamin B-12) 2,500 mcg PO QAM 01/23/22 04/23/22 History 2,500 mcg tablet folic acid 0.8 mg capsule 0.8 mg PO QAM 01/23/22 04/23/22 History metoprolol tartrate 50 mg tablet 50 mg PO BID 01/23/22 04/23/22 History potassium 99 mg tablet 99 mg PO QAM 01/23/22 04/23/22 History ranolazine 500 mg tablet,extended 500 mg PO BID 01/23/22 04/23/22 History release,12 hr (Ranexa) vit C,E,zinc,copper-xcwfq2z 250 2 cap PO BID 01/23/22 04/23/22 History mg-lutein 5 mg-zeaxanthin 1 mg capsule (Ocuvite Adult 50 Plus) oxycodone 5 mg tablet 5 mg PO Q6H PRN pain, severe #20 04/24/22 Rx tabs tramadol 50 mg tablet 50 mg PO Q6H PRN pain, moderate 04/24/22 Rx #20 tabs Patient History Medical History Anxiety 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 Medically managed. Follows with cardio (Dr. Kyle/[facility]) Deep vein thrombosis Multiple- on Eliquis Depression History of COVID-19 01/2020 > dx while being treated for kidney stones>asymptomatic for Covid Hypertension Kidney stones Hx Migraine Hx Myocardial Infarction 01/2021; Dr. Kyle, [facility] Pulmonary embolism 01/2021- on Eliquis Sleep apnea Told to stop using CPAP "because I wake up gasping for air with it on" Surgical History Fusion of spine X4 SURGERIES TOTAL FUSED FROM T11-S1 (DR MURPHY, [facility]) Fusion of spine C4-C7 DIFFICULTY TURNING TO RIGHT, LIMITED CERVICAL EXTENSIO PER PT History of adenoidectomy History of anesthesia reaction "slow to wake" History of appendectomy History of arthroplasty of left knee Left TKA (01/26/19): unable to get to CSI > [place] (Grade view 1, Kirby#2, ETT 7.0, atraumatic + PNB) at [facility] History of cardiac cath X3 (LAST ONE 2012), NO STENTS History of carpal tunnel release RIGHT & LEFT History of cataract surgery BILATERAL History of cholecystectomy History of colonoscopy History of cystoscopy History of dilatation and curettage History of discectomy CERVICAL AREA History of discectomy LUMBAR History of esophageal dilatation History of esophagogastroduodenoscopy (EGD) History of lithotripsy History of Summer fundoplication History of tonsillectomy S/P LARON-BSO Status post laser ablation of incompetent vein RLE Status post surgery OPEN CHEST SURGERY TO REMOVE BENIGN TUMOR OF THYMUS. ([facility]) Family History Aunt Family history of diabetes mellitus Uncle Family history of diabetes mellitus Sister Family history of diabetes mellitus Mother Family hx of colon cancer Family history of diabetes mellitus FHx: ovarian cancer History of anesthesia problem Very slow to wake- required family to get testing- patient tested negative (but patient cannot give specifics of what the testing was for) Brother Family hx of colon cancer Social History Smoking Status: Former smoker Age Quit Using Tobacco: 34; Smoking End Date: quit 50+ years ago; Second Hand Exposure: No; Do You Dip or Chew Tobacco: No; Tobacco Cessation Education Requested by Patient: No Hx Alcohol Use: Yes Alcohol type: wine Hx Substance Use: No Preferred Language: Kinyarwanda Communication Ability: Effective 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 Physical Exam Physical Exam: Gen: WD/WN, NAD, sitting in bed, A&Ox3 HEENT: Normocephalic, atraumatic, conjunctivae moist, sclerae anicteric, mucous membranes moist. + Anterior cervical dressing c/d/i. ANDRES drain visualized Lung: Clear to Auscultation bilaterally, no wheezes/rales/rhonchi Heart: Regular rate, regular rhythm, no murmurs, rubs, or gallops Abdomen: Soft, NT, ND +BS x 4 Extremities: no edema Skin: Warm, no rash Results & Data Results & Data ([facility]) Vital Signs (Past 12 Hours) Vital Signs Temp Pulse Pulse Resp BP BP Pulse Ox 04/24/22 07:28 60 17 97 04/24/22 07:05 04/24/22 06:20 93 04/24/22 05:23 36.4 C L 65 15 163/68 H 99 04/24/22 03:18 60 16 99 04/24/22 02:58 36.4 C L 66 16 161/75 H 99 04/24/22 00:59 36.5 C 59 L 16 141/67 H 99 04/23/22 23:21 36.5 C 58 L 16 138/68 97 04/23/22 22:25 69 16 94 O2 Del Method O2 Flow Rate 04/24/22 07:28 Room Air 04/24/22 07:05 Room Air 04/24/22 06:20 Room Air 04/24/22 05:23 Nasal Cannula 2 04/24/22 03:18 Nasal Cannula 2 04/24/22 02:58 Nasal Cannula 2 04/24/22 00:59 Room Air 04/23/22 23:21 Room Air 04/23/22 22:25 Room Air
--- NOTE | 2022-04-24 09:53 | Orthopedic Progress Note ---
Date of Service April 24, 2022 Assessment & Plan (1) Cervical stenosis of spinal canal: Plan: This time continue to observe her until tomorrow. Maintain ANDRES drain. Hopefully home tomorrow. Admission and Anticipated Discharge Date Admission Date: April 23, 2022 Subjective Patient's neck pain is improved arm symptoms improved. Physical Exam Physical Exam: On exam she sitting up at the bedside. Has improved cervical range of motion and excellent strength testing. Results & Data ([facility]) Vital Signs (Past 12 Hours) Vital Signs Temp Pulse Pulse Resp BP BP Pulse Ox 04/24/22 07:28 60 17 97 04/24/22 07:05 04/24/22 06:20 93 04/24/22 05:23 36.4 C L 65 15 163/68 H 99 04/24/22 03:18 60 16 99 04/24/22 02:58 36.4 C L 66 16 161/75 H 99 04/24/22 00:59 36.5 C 59 L 16 141/67 H 99 04/23/22 23:21 36.5 C 58 L 16 138/68 97 04/23/22 22:25 69 16 94 O2 Del Method O2 Flow Rate 04/24/22 07:28 Room Air 04/24/22 07:05 Room Air 04/24/22 06:20 Room Air 04/24/22 05:23 Nasal Cannula 2 04/24/22 03:18 Nasal Cannula 2 04/24/22 02:58 Nasal Cannula 2 04/24/22 00:59 Room Air 04/23/22 23:21 Room Air 04/23/22 22:25 Room Air
[2022-04-24 14:46] LABS: Hematocrit (blood only) 34.9 % (34.1-44.9); Hemoglobin 11.9 g/dl (12.0-16.0); Mean Corpuscular Hemoglobin 30.5 pg (25.0-34.0); Mean Corpuscular Hgb Conc 34.1 g/dL (32.0-36.0); Mean Corpuscular Volume 89.5 fL (80.0-100.0); Mean Platelet Volume 11.5 fL (9.4-12.3); Platelet Count 165 K/uL (130-400); RDW Coefficient of Variation 13.1 % (11.5-14.5); RDW Standard Deviation 42.6 fL (36.4-46.3); White Blood Count 9.78 K/ul (4.8-10.8)
[2022-04-24 14:50] LABS: BUN Creatinine Ratio 19.4 (10-20); Calcium 8.5 mg/dl (8.5-10.1); Creatinine Clr Calc Pharmacy 72.6 ml/min; Est GFR (Non-African American) 84.6 ml/min; Potassium 4.1 mmol/L (3.5-5.1)
[2022-04-24] MEDS: MAGNESIUM OXIDE 400 MG TAB PO SCH (21:18)
[2022-04-24] MEDS: DOCUSATE SODIUM/SENNA 50/8.6MG TAB PO SCH (21:18)
[2022-04-25] MEDS: POLYETHYLENE (MIRALAX) 17 GM PACK PO SCH ×2 (05:19→12:40)
[2022-04-25] MEDS: RANOLAZINE 500 MG ER TAB PO SCH (08:07)
[2022-04-25] MEDS: METOPROLOL TARTRATE 50 MG TAB PO SCH (08:07)
--- NOTE | 2022-04-25 12:45 | Discharge Summary ---
Date of Service April 25, 2022 Admission HPI Per Admitting Provider This is an 81-year-old female presents with worsening neck and arm pain after failing course of nonoperative care is here for surgical invention. Principal Diagnosis Cervical spinal stenosis with radiculopathy Discharge Data Allergies Allergy/AdvReac Type Severity Reaction Status Date / Time Penicillins Allergy Severe Dyspnea, Verified 04/23/22 06:47 diffuse swelling pineapple Allergy Severe Anaphylaxis Verified 04/23/22 06:47 nickel Allergy Intermediate Blistering Verified 04/23/22 06:47 Cephalosporins AdvReac Mild Keflex Verified 04/23/22 06:47 (N/V) Iodinated Contrast Media AdvReac Mild N/V Verified 04/23/22 06:47 Consultations 04/23/22 11:44 Consult Hospitalist Routine Procedures Performed Operation Date: 04/23/22 07:45 Actual Procedures p C3-C4 Anterior Cervical Discectomy Fusion, Spinal Cord Monitoring(Not Applicable) - Humberto Murphy DO Ordered Studies 04/23/22 07:45 FL cervical 2-3V Routine Hospital Course (1) Cervical stenosis of spinal canal: Patient went into cervical discectomy and fusion tolerated this well was taken to orthopedic for postoperative. Postop day 1 she was swallowing well no hoarseness symptoms improving. She progressed to postop day 1 or 2. ANDRES drain to the syncope. EXTR strength testing. Separately discharged home. Discharge orders instructions from the chart for further review. Total Time Total Time Spent Total Time Spent (In Minutes): 20 minutes Discharge Plan Discharge Items Patient Disposition: Home - Self-Care Reason For Visit: Spinal Stenosis, Cervical Region Discharge Diagnosis: Cervical spinal stenosis Activity: As commented below Non-emergency contact: Primary Care Provider Call non-emergency contact if: you have any medication questions Follow-up/Referrals: Luis Alberto Adame [Primary Care Provider] - Diet: Regular Addtl Attending Provider Instructions: ACTIVITY RECOMMENDATIONS: SELF CARE INSTRUCTIONS AFTER CERVICAL FUSIONS 1. No smoking. Smoking drastically decreases the chance of a solid fusion. 2. No bending, lifting more than 5 pounds, or twisting (roll like a log when turning in bed). 3. You may shower 3 days after surgery. Thoroughly dry wound. Do not soak in the tub. 4. Cervical collar: Must be worn at all times including sleeping. You may remove the brace only to bath, eat and if you are sitting in a recliner. 5. Please walk as much as you can for exercise. Gradually increase the distance that you walk as your endurance increases. SPECIAL CARE INSTRUCTIONS: VERY IMPORTANT TO READ AND REVIEW A. Do not take any anti-inflammatory medications (i.e. Indocin, Advil, Aspirin, Naprosyn, Aleve, Motrin, etc.) as these may inhibit the chance of a solid fusion. Tylenol is okay to take. B. Your surgical incision has been closed with a cosmetic suture under the skin that will dissolve in about 6 weeks. In 14 days, you can use a pair of clean scissors and cut the suture that is left outside of the skin at the ends of your incision. C. Complications are uncommon, but please contact us if you have any signs or symptoms of: 1. wound infection (fever higher than 102.5 degrees F, redness, separation of wound, drainage, or increasing pain from the incision) 2. blood clots in legs (pain, swelling, redness and warmth in legs) 3. urinary tract infection (fever higher than 102.5 degrees, burning upon urination or increased frequency of urination) 4. nerve problems (inability to walk on your toes or heels, numbness, loss of bowel or bladder control) 5. any other symptoms that concern you. D. Please call the office at if you have any concerns or questions about your operation or recovery. MANAGING PAIN AFTER SPINAL SURGERY 1. Narcotic medication is intended for short-term use and will be provided for surgical pain. Surgical pain usually lasts for a period of 4-6 weeks. Narcotic medication includes Percocet, Vicodin, Darvocet, Tylenol #3 or Lortab. 2. Longer-term pain is more appropriately treated with non-narcotic medication such as Tylenol ES. 3. Muscle spasm is not appropriately treated with narcotics. Muscle relaxers such as Soma, Flexeril or Skelaxin can be used along with Tylenol ES. 4. Remember that we all live with some "aches and pains". This is not unusual or uncommon after an injury or as we get older. 5. We will provide appropriate medication within the normal guidelines of their prescribed use. We will also be very cautious and aware of potential abuse and extended duration of patients' medication needs. 6. Please allow 2-3 days to process refills. Prescriptions will not be mailed but must be picked up at the office. FOLLOW UP VISIT: Keep your scheduled follow-up appointment. Any questions, please call the office at . Pending Studies at Discharge: No Stand-Alone Forms: My [facility], Smoking Cessation Medications and DC Order Prescriptions: New tramadol 50 mg tablet 50 mg PO Q6H PRN (Reason: pain, moderate) Qty: 20 0RF oxycodone 5 mg tablet 5 mg PO Q6H PRN (Reason: pain, severe) Qty: 20 0RF Continued ascorbic acid (vitamin C) [Vitamin C With Isela Hips] 1,000 mg Tablet 1,000 mg PO QAM magnesium oxide 500 mg Tablet 500 mg PO HS nitroglycerin [Nitrostat] 0.4 mg Tablet, Sublingual 1 dose sublingual UD PRN (Reason: Chest Pain) cholecalciferol (vitamin D3) [Vitamin D3] 5,000 unit Tablet 5,000 unit PO QAM Refresh Optive Advanced 0.5-1-0.5 % Drops 1 drp OPHTHALMIC (EYE) UD Rx Instructions: Use as often as needed. cod liver oil Capsule 1 cap PO HS potassium 99 mg Tablet 99 mg PO QAM metoprolol tartrate 50 mg Tablet 50 mg PO BID ranolazine [Ranexa] 500 mg Tablet Extended Release 12 Hr 500 mg PO BID folic acid 0.8 mg Capsule 0.8 mg PO QAM cyanocobalamin (vitamin B-12) 2,500 mcg Tablet 2,500 mcg PO QAM Ocuvite Adult 50 Plus 250-5-1 mg Capsule 2 cap PO BID acetaminophen 650 mg Tablet Extended Release 650 - 1,300 mg PO Q12H PRN (Reason: Pain) Discontinued Eliquis 5 mg Tablet 5 mg PO BID Discharge Orders: Discharge Order (Routine); Ordered 04/25/22 Ordered By: Humberto Murphy Admission Data Admit Date/Time: 04/23/22 09:14 Attending Provider: Humberto Murphy Admit Provider: Humberto Murphy Primary Care Provider: Luis Alberto Adame Other Providers: Jessica Milligan ; Barney Ventura
--- NOTE | 2022-04-25 15:37 | Hospitalist Progress Note ---
Date of Service April 25, 2022 Assessment & Plan (1) S/P spinal surgery: Plan: This is an 81yo F with a PMH of CAD, history of PE on Eliquis, HTN, anxiety, depression and other medical problems listed below who is s/p anterior cervical discectomy with bilateral foraminotomies C3-C4. POD#2 s/p anterior cervical discectomy with bilateral foraminotomies C3-C4 Per ortho for pain control, wound care, anticoagulation and activities Monitor H&H (EBL 10ml, pre-op hgb 13.4) -hemoglobin fairly closer to baseline. Continue incentive spirometry, PT/OT when appropriate (2) Pulmonary embolism: Plan: On terminal carman anticoagulation - multiple DVTs/PEs 2/ covid in 2019. Eliquis held for 3 days pre-operatively. Following with cardiology. Directed to resume upon discharge home (3) CAD (coronary artery disease): Plan: Stable. Continue Ranexa, Lopressor. Aspirin on hold per cardiology note (4) Hypertension: Plan: Continue Lopressor (5) Sleep apnea: Plan: Intolerant to CPAP but reports hypoxia at night. Continue supplemental O2 PRN Code status: FULL PCP: Deep Dispo: Per primary service Admission and Anticipated Discharge Date Admission Date: April 23, 2022 Subjective Patient seen and examined at bedside as a follow-up of status post anterior cervical discectomy with bilateral foraminotomies C3-C4. Patient was sitting up in chair, on room air, NAD, no new acute events overnight. Patient reports pain under control at operative site. Patient reports improvement in her radicular pain. Patient denies any headache/dizziness. Patient reports eating okay and starting to move bowel. Physical Exam Physical Exam: GENERAL: Alert and oriented x3. NAD, on RA. HEENT: No pallor, no icterus. Pupils equal, round and reactive to light. Oral mucosa moist. NECK: No JVD, no neck masses. HEART: S1 and S2 heard. Regular rate and rhythm. No murmur, no gallop. RESPIRATORY SYSTEM: Normal AP diameter. No accessory muscle use. No wheezing, no crackles. ABDOMEN: Soft, bowel sounds present, nontender, no distention. CENTRAL NERVOUS SYSTEM: No facial droop. Speech is clear. Obeys simple commands. Moves extremities. EXTREMITIES: No edema, no erythema seen. Anterior neck with clean dressing at operative sites without soakage. ANDRES drain with scant serosanguineous collection noted. Results & Data Results & Data ([facility]) Vital Signs (Past 12 Hours) Vital Signs Temp Pulse Pulse Resp BP BP Pulse Ox 04/25/22 13:19 36.7 C 59 L 18 169/84 H 96 04/25/22 11:17 58 L 17 92 04/25/22 08:08 64 167/77 H 04/25/22 07:50 36.4 C L 57 L 18 160/75 H 95 04/25/22 07:11 71 18 95 O2 Del Method 04/25/22 13:19 Room Air 04/25/22 11:17 Room Air 04/25/22 08:08 04/25/22 07:50 04/25/22 07:11 Room Air
== END 2022-04-25 15:10 | disposition home or self-care (01) ==
LOC: ASU 06:08 → INTOOBSV 09:14 → PACUINP 09:14 → 3E 12:30
DX: I25.2 Old myocardial infarction; Z86.711 Personal history of pulmonary embolism; Z88.0 Allergy status to penicillin; I25.10 Atherosclerotic heart disease of native coronary artery without angina pectoris; Z79.01 Long term (current) use of anticoagulants; I10 Essential (primary) hypertension; Z99.81 Dependence on supplemental oxygen; M48.02 Spinal stenosis, cervical region; Z91.018 Allergy to other foods; G47.30 Sleep apnea, unspecified; Z86.718 Personal history of other venous thrombosis and embolism; Z88.1 Allergy status to other antibiotic agents; Z86.16 Personal history of COVID-19; Z91.041 Radiographic dye allergy status